=== PATIENT | female | born 1940 | race Caucasian/White ===

== ENCOUNTER 2018-08-30 07:24 | Inpatient (IN) ==
--- NOTE | 2018-08-30 12:32 | History & Physical Report ---
Date of Encounter: 08/30/18 Time of Encounter: 12:10 24 Hour HP Update - Instructions Instructions: If the History and Physical is less than 30 days old and was completed prior to A.M. admission and or procedure and has NOT been updated on calendar day of procedure please complete this update prior to performing procedure. - Update Patient reports changes in Medical Condition: No Changes in examination, assessment, or condition: No Changes in Medication: No Preop tests/diagnostics Reviewed: Yes Review of Patient reveals the following changes:: Directly admitted for sotalol initiation
[2018-08-30] MEDS ORDERED: Naloxone 0.4 MG/ML INJ IVP PRN (12:34)
[2018-08-30] MEDS ORDERED: *HR* OxyCODONE/APAP 5/325 TABLET PO PRN (12:37)
[2018-08-30] MEDS: Famotidine 20 MG TABLET PO SCH (15:35)
[2018-08-30] MEDS: Sucralfate 1 GM TABLET PO SCH (15:35)
[2018-08-30] MEDS: Gabapentin 100 MG CAPSULE PO SCH (21:52)
[2018-08-31] MEDS ORDERED: Acetaminophen 325 MG TABLET PO ONE (01:33)
--- NOTE | 2018-08-31 08:03 | Electrophysiology ProgressNote ---
Date of Encounter: 08/31/18 Time of Encounter: 08:00 Assessment and Plan (1) Atrial fibrillation Current Visit: No Status: Chronic Per Cardiology: Status post sotalol 80 mg 1 dose. Average heart rate past 12 hours on telemetry 62, remains atrial fibrillation. Current ECG shows: A. fib in the 50s with current QTC= 480ms-- however upon review appears 420's-440's per review with Dr. Trent Castellon; recommendations to continue sotalol 80 mg by mouth every 12 hours. NPO after MN for possible DCCV in am. On Xarelto 20mg PO daily, has not missed any doses the past 30 days. Qualifiers: Atrial fibrillation type: unspecified Qualified Code(s): I48.91 - Unspecified atrial fibrillation Discussion w patient/family: The assessment and plan as outlined above was discussed with the patient and/or family members who expressed understanding and agreement. All questions were answered. Thank you for involving us in the care of your patient. Please call with any questions. Subjective Principal diagnosis: Afib Interval history: Patient denies any concerns or complaints overnight. Denies any chest pain, short of breath, palpitations. Objective Vital Signs, Last 4 Hours Temp Pulse Resp BP Pulse Ox 08/31/18 05:02 97.8 F 70 16 145/81 98 08/31/18 04:40 16 96 General: Conversant, No Apparent Distress HEENT: Atraumatic, Normocephaly, Mucus Membranes Moist Neck: No JVD, Normal carotid pulses Cardiac: Normal S1 and S2, No Murmur, Other (Irregularly irregular) Lungs: Normal Breath Sounds, No Wheeze, Rales, Rhonchi Neuro: Alert and responsive, No focal deficits noted Abdomen: Soft, Non-Tender Skin: No rashes noted on visualized skin Musculoskeletal: No Chest Wall Tenderness Extremities: No Clubbing, No Cyanosis, No Edema, Normal Pulses Results - EKG Interpretation EKG results cardiology: other (Telemetry shows average heart rate 62 the past 12 hours, longest pause 2.5 secs) - VTE Reasons for not Prescribing Prophylaxis: Not indicated-Anticoagulated or INR therapeutic Consult Discharge Plan - Plan Referrals: Pro Glover MD [Primary Care Provider] -
[2018-08-31] MEDS: Furosemide 40 MG TABLET PO SCH (08:21)
[2018-08-31] MEDS: Famotidine 20 MG TABLET PO SCH ×2 (08:21→16:30)
[2018-08-31] MEDS: *HR* Rivaroxaban 10 MG TABLET PO SCH (08:21)
[2018-08-31] MEDS: Sucralfate 1 GM TABLET PO SCH ×3 (08:21→16:30)
[2018-08-31] MEDS: NIFEdipine XL (24 HR) 30 MG TAB.ER.24 PO SCH ×2 (08:21→08:40)
[2018-08-31] MEDS: Aspirin Enteric Coated 81 MG Tablet PO SCH (08:21)
[2018-08-31] MEDS: Isosorbide MONOnitrate (24 HR) 60 MG TAB.ER.24H PO SCH (08:22)
[2018-08-31] MEDS: carBAMazepine 200 MG TABLET PO SCH (08:22)
[2018-08-31] MEDS ORDERED: FELODIPINE 10 MG PO SCH (09:00)
[2018-08-31] MEDS: Gabapentin 100 MG CAPSULE PO SCH (20:12)
[2018-09-01] MEDS: Furosemide 40 MG TABLET PO SCH (07:13)
--- NOTE | 2018-09-01 09:23 | Event Note ---
Date of Encounter: 09/01/18 Time of Encounter: 08:45 - Cardiology Event Note S/p fourth dose of sotalol therapy. She remains in atrial fibrillation rate controlled. EKG this morning shows a heart rate of 62 bpm atrial fibrillation, QRS 116, QT/QTC 390/395. She is asymptomatic at this time. Denies chest pain or palpitations. Plan of a mild headache this morning. DCCV be discussed and she agrees to proceed. She denies missed doses of xarelto in the past month. Plan for discharge early evening after her fifth dose of sotalol.
[2018-09-01] MEDS: Aspirin Enteric Coated 81 MG Tablet PO SCH (09:57)
[2018-09-01] MEDS: Sucralfate 1 GM TABLET PO SCH ×3 (09:57→15:58)
[2018-09-01] MEDS: Isosorbide MONOnitrate (24 HR) 60 MG TAB.ER.24H PO SCH (09:57)
[2018-09-01] MEDS: Famotidine 20 MG TABLET PO SCH ×2 (09:57→15:57)
[2018-09-01] MEDS: carBAMazepine 200 MG TABLET PO SCH (09:57)
[2018-09-01] MEDS: *HR* Rivaroxaban 10 MG TABLET PO SCH (09:58)
[2018-09-01] MEDS ORDERED: 0.9 % Sodium Chloride 500 ML IVC ONE (10:25)
[2018-09-01] MEDS: *HR* Midazolam HCl 5 MG/5 ML VIAL IVP PRN ×2 (11:00→11:05)
[2018-09-01] MEDS: *HR* FentaNYL (PF) 100 MCG/2 ML VIAL IVP PRN ×2 (11:00→11:05)
--- NOTE | 2018-09-01 14:13 | Event Note ---
Date of Encounter: 09/01/18 Time of Encounter: 14:11 - Cardiology Event Note S/p cardioversion, HR in the low 40's after cardioversion, sinus bradycardia. No significant symptoms. Low b/p noted. IV fluid bolus given. I will discuss further recommendations with Dr. Trent Castellon. We will monitor overnight, possible d/c tomorrow.
[2018-09-01] MEDS: Gabapentin 100 MG CAPSULE PO SCH (19:51)
[2018-09-02] MEDS: Furosemide 40 MG TABLET PO SCH (09:13)
[2018-09-02] MEDS: carBAMazepine 200 MG TABLET PO SCH (09:13)
[2018-09-02] MEDS: *HR* Rivaroxaban 10 MG TABLET PO SCH (09:13)
[2018-09-02] MEDS: Isosorbide MONOnitrate (24 HR) 60 MG TAB.ER.24H PO SCH (09:13)
[2018-09-02] MEDS: Aspirin Enteric Coated 81 MG Tablet PO SCH (09:13)
[2018-09-02] MEDS: Sucralfate 1 GM TABLET PO SCH ×2 (09:13→10:39)
[2018-09-02] MEDS: Famotidine 20 MG TABLET PO SCH (09:13)
--- NOTE | 2018-09-02 09:42 | Electrocardiograph Report ---
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
--- NOTE | 2018-09-02 09:56 | Discharge Summary ---
Date of Encounter: 09/02/18 Time of Encounter: 10:00 - Discharge Diagnosis (1) Atrial fibrillation Priority: Primary Status: Chronic Comments: Directly admitted for antiarrhythmic initiation. Qualifiers: Atrial fibrillation type: unspecified Qualified Code(s): I48.91 - Unspecified atrial fibrillation - Hospital Course Hospital course: Ms. Greene is a 78 year old female directly admitted for antiarrhythmic initiation of sotalol for atrial fibrillation. Patient started on sotalol 80 mg by mouth every 12 hours and status post DC cardioversion with conversion to sinus rhythm. Patient remains sinus bradycardic in the high 40s. Discussed and reviewed with Dr. Trent Castellon, recommendations to proceed with decreasing dose of sotalol to 40 mg by mouth every 12 hours and discharge to home now and follow-up in outpatient setting. Current ECG reviewed with Dr. Castellon, SB at 52 , QTc 503ms. Patient remains on Celexa as well-- Dr. Castellon aware. Patient to be evaluated for potential need for pacemaker if remains bradycardic or develop symptoms. Currently asymptomatic and stable. Remains on Xarelto 20 mg by mouth daily for anticoagulation. Home Beta eunice being held. Prepping for discharge to home in stable condition. All questions answered. - Time Spent with Patient Total time spent providing and/or coordinating discharge services: Less than 30 minutes - Discharge Medications Prescriptions: Sotalol [Betapace] 40 mg PO Q12H #60 tablet Home Medications: Aspirin Enteric Coated [Aspirin EC] 81 mg PO DAILY 10/01/16 [History] Ergocalciferol (VITAMIN D2) [Vitamin D2] 50,000 unit PO QWEEK 10/01/16 [History] Furosemide [Lasix] 40 mg PO DAILY 10/01/16 [History] Potassium Chloride [K-Tab ER] 20 meq PO DAILY 10/01/16 [History] carBAMazepine [Tegretol] 200 mg PO DAILY 10/01/16 [History] raNITIdine HCl [Zantac] 150 mg PO BID 10/01/16 [History] Atorvastatin [Lipitor] 20 mg PO HS tablet 10/03/16 [Rx] Isosorbide MONOnitrate (24 HR) [Imdur] 60 mg PO DAILY tab.er.24h 10/03/16 [Rx] Sucralfate [Carafate] 1 gm PO TIDAC 30 Days tablet 10/03/16 [Rx] Citalopram Hydrobromide [Celexa] 40 mg PO DAILY 12/10/16 [History] Gabapentin [Neurontin] 100 mg PO HS 12/10/16 [History] Albuterol Sulfate [Albuterol Inhaler] 2 puff IH QID #1 inhaler 12/05/17 [Rx] Oxycodone HCl/Acetaminophen [Percocet 5-325 mg Tablet] 1 tab PO QID PRN [History] Rivaroxaban [Xarelto] 20 mg PO DAILY 08/30/18 [History] Sotalol [Betapace] 40 mg PO Q12H #60 tablet 09/02/18 [Rx] Allergies/Adverse Reactions: 3 Allergy/AdvReac Type Severity Reaction Status Date / Time hydrocodone [From Vicodin] Allergy Itching Verified 06/29/18 18:32 codeine AdvReac Chest Pain Verified 06/29/18 18:32 Date of admission: 08/30/18 12:34 Primary care physician: Pro Glover MD Consults: none Discharging clinician: Ji Urbano Anticipated date of discharge: 09/02/18 Physical Examination Vital Signs, Last 4 Hours Temp Pulse Resp BP Pulse Ox 09/02/18 08:02 97.7 F 50 17 104/57 93 Telemetry reviewed and shows sinus bradycardia in the upper 40s with average heart rate past 12 hours 50. ECG this morning showed sinus bradycardia at 52 with QTC of 503 ms, General: Conversant, No Apparent Distress HEENT: Atraumatic, Normocephaly, Mucus Membranes Moist Neck: No JVD, Normal carotid pulses Cardiac: Reg Rate and Rhythm, Normal S1 and S2, No Murmur Lungs: Normal Breath Sounds, No Wheeze, Rales, Rhonchi Neuro: Alert and responsive, No focal deficits noted Abdomen: Soft, Non-Tender Skin: No rashes noted on visualized skin Musculoskeletal: No Chest Wall Tenderness Extremities: No Clubbing, No Cyanosis, No Edema, Normal Pulses - Patient Status Disposition: Home, Self-Care Condition: Good Overall status at discharge: patient is progressing back to baseline - Discharge Instructions Follow Up With: Pro Glover MD [Primary Care Provider] - - Diet and Activity Diet: advance to your usual diet, low fat, low cholesterol, low salt diet - VTE Reasons for not Prescribing Prophylaxis: Not indicated-Anticoagulated or INR therapeutic
[2018-09-02 11:26] VITALS: BP 120/60
--- NOTE | 2018-09-02 11:42 | Electrocardiograph Report ---
[address] [place] [address] Test Date: 2018-08-31 Pat Name: Alison Greene Department: 109 Room: 2A42 Gender: F Shearing Shed Hand: TLS : 1940 Requested By: Ji Urbano Order Number: [id number] Reading MD: Tonia Cheng Measurements Intervals [place] Rate: 57 P: [place]: 0 QRS: -15 QRSD: 111 T: 0 QT: 488 QTc: 482 Interpretive Statements ATRIAL FIBRILLATION WITH SLOW VENTRICULAR RESPONSE INFERIOR MYOCARDIAL INFARCTION, AGE INDETERMINATE NONSPECIFIC STT ABNORMALITIES Electronically Signed On 09-02-2018 11:40:43 EDT by Tonia Cheng
--- NOTE | 2018-09-02 14:11 | Electrocardiograph Report ---
[address] [place] [address] Test Date: 2018-09-01 Pat Name: Alison Greene Department: 109 Room: 2A42 Gender: F Loom Operator: ABIMBOLA : 1940 Requested By: Ji Urbano Order Number: [id number] Reading MD: Tonia Cheng Measurements Intervals [place] Rate: 62 P: [place]: 0 QRS: -15 QRSD: 116 T: 158 QT: 390 QTc: 395 Interpretive Statements ATRIAL FIBRILLATION Nonspecific intraventricular conduction delay INFERIOR MYOCARDIAL INFARCTION, AGE INDETERMINATE MODERATE T-WAVE ABNORMALITY, CONSIDER LATERAL ISCHEMIA Electronically Signed On 09-02-2018 14:09:42 EDT by Tonia Cheng
--- NOTE | 2018-09-02 14:24 | Electrocardiograph Report ---
[address] [place] [address] Test Date: 2018-09-01 Pat Name: Alison Greene Department: 109 Room: 2A42 Gender: F Shovel Logger: : 1940 Requested By: Trent Castellon Order Number: [id number] Reading MD: Tonia Cheng Measurements Intervals [place] Rate: 61 P: [place]: 0 QRS: -22 QRSD: 116 T: -27 QT: 470 QTc: 472 Interpretive Statements ATRIAL FIBRILLATION Nonspecific intraventricular conduction delay INFERIOR MYOCARDIAL INFARCTION, AGE INDETERMINATE MODERATE T-WAVE ABNORMALITY, CONSIDER LATERAL ISCHEMIA Electronically Signed On 09-02-2018 14:23:01 EDT by Tonia Cheng
--- NOTE | 2018-09-02 14:27 | Electrocardiograph Report ---
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
--- NOTE | 2018-09-02 14:57 | Electrocardiograph Report ---
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
== END 2018-09-02 13:43 | disposition home or self-care (01) | DRG 310 ==
LOC: 2ANU
PROVIDERS: ADMIT Internal Medicine Clinical Cardiac Electrophysiology; ATTEND Internal Medicine Clinical Cardiac Electrophysiology

== ENCOUNTER 2018-09-20 17:42 | Observation (INO) ==
--- NOTE | 2018-09-20 17:52 | Emergency Department Note ---
Disposition Clinical Impression: ST segment depression Syncope Qualifiers: Syncope type: unspecified Qualified Code(s): R55 - Syncope and collapse Disposition: Admitted As Inpatient Condition: Fair Forms: ED Satisfaction Letter Time of Disposition: 20:19 Syncope HPI - General Chief Complaint: ED Syncope Stated Complaint: syncope Time Seen by Provider: 09/20/18 17:44 Nursing Notes Reviewed: Yes Vital Signs Reviewed: Yes - History of Present Illness HPI Narrative: 70-year-old female presents from urgent care via EMS. She went to urgent care concerned for possible sinus infection she has been blowing her nose quite a bit last several days. While in the waiting room, she had chest heaviness, profound tiredness sensation, warm sensation. She had syncope while sitting. She remembers coming to with multiple people around her. At this time, her only symptom is tiredness. She had no head trauma. ROS: Positive: As above Negative: Palpitations, diaphoresis, nausea, vomiting, upper extremity or jaw pain/heaviness, abdominal pain, dizziness, confusion, focal weakness, fever, chills. No dysuria no change in bowel habits. - Related Data Home Medications Medication Instructions Recorded Confirmed Aspirin Enteric Coated [Aspirin EC] 81 mg PO DAILY 10/01/16 08/30/18 Ergocalciferol (VITAMIN D2) 50,000 unit PO QWEEK 10/01/16 08/30/18 [Vitamin D2] Furosemide [Lasix] 40 mg PO DAILY 10/01/16 08/30/18 Potassium Chloride [K-Tab ER] 20 meq PO DAILY 10/01/16 08/30/18 carBAMazepine [Tegretol] 200 mg PO DAILY 10/01/16 08/30/18 raNITIdine HCl [Zantac] 150 mg PO BID 10/01/16 08/30/18 Citalopram Hydrobromide [Celexa] 40 mg PO DAILY 12/10/16 08/30/18 Gabapentin [Neurontin] 100 mg PO HS 12/10/16 08/30/18 Oxycodone HCl/Acetaminophen 1 tab PO QID PRN 08/30/18 08/30/18 [Percocet 5-325 mg Tablet] Rivaroxaban [Xarelto] 20 mg PO DAILY 08/30/18 08/30/18 Previous Rx's Medication Instructions Recorded Atorvastatin [Lipitor] 20 mg PO HS tablet 10/03/16 Isosorbide MONOnitrate (24 HR) 60 mg PO DAILY tab.er.24h 10/03/16 [Imdur] Sucralfate [Carafate] 1 gm PO TIDAC 30 Days tablet 10/03/16 Albuterol Sulfate [Albuterol 2 puff IH QID #1 inhaler 12/05/17 Inhaler] Sotalol [Betapace] 40 mg PO Q12H #60 tablet 09/02/18 Allergies Allergy/AdvReac Type Severity Reaction Status Date / Time hydrocodone [From Vicodin] Allergy Itching Verified 09/20/18 17:52 codeine AdvReac Chest Pain Verified 09/20/18 17:52 All systems ED: reviewed and negative except as stated. 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 Head: atraumatic, normocephalic Eye: normal appearance, PERRL, EOMI, no scleral icterus, no conjunctival injection ENT: mucous membranes moist, normal external ear exam Neck: normal inspection, trachea midline, full ROM Chest: normal inspection, symmetric chest rise Respiratory: Good respiratory effort. Bilateral breath sounds are clear without wheezing, crackles, or rhonchi. Cardiovascular: Regular rate and rhythm. No clicks, rubs, gallops, or murmors. Normal heart sounds. Bilateral radial posterior tibial pulses 2/4 equal. Abdomen: Bowel sounds present normoactive x-4 quadrants. Abdomen is soft, nondistended, and nontender. No guarding or rebound. Musculoskeletal: Spontaneously moving all extremities. Skin: warm, dry, intact. Neuro: Alert and oriented x4. Sensation light touch intact. Psych: Patient's affect is appropriate for situation. Course Course Narrative: Patient discharged 09/02/18. She was admitted in atrial fibrillation. Started on sotalol. DC cardioverted into sinus bradycardia. Per discharge summary, discharge medicaitons include sotalol, imdur, lasix, xarelto, aspirin. ST depression in inferior, medial, and anterior regions all of which are new. ST elevation in aVR stable from previous EKG. 18:00 Discussed the patient with Dr. Tran. Recommends we place pads. Admit to tele. Skip next sotalol and avoid antiarrhythmics. Does not meet criteria for posterior STEMI. Concern for prolonging QTC and potential to devolve into torsade. EKG #1 EKG dated 09/20/2018 at 17:53 interpreted as atrial fibrillation with rate of 59. QTC 40. Normal axis. ST depression in leads 2, 3, V3, V4, V5, V6 which are new from comparative EKG dated 09/02/2018. Precordial T-wave inversions are not new. No ST elevations. Patient is chest pain-free. EKG #2 Posterior EKG dated 09/20/2018 at 18:[address] elevations in leads V7, V8, benign. QTC 511. EKG #3 No acute changes compared to EKG #1 above. Patient is chest pain-free. Patient's story is concerning for cardiac etiology. She is been chest pain-free while the emergency department despite repeated EKG showing diffuse ST depression. Initial and repeat troponin were both unremarkable. Cardiology was consult and as above; recommendation was admission on telemetry with defibrillation pads in place, skipping her home dose of antiarrhythmics. I discussed the above with the admitting hospitalist who agrees to accept the patient for continued evaluation monitoring with cardiology consultation. Chest X-Ray 09/20/18 17:47 IMPRESSION: No acute cardiopulmonary process. D/ / Ofelia Parsons MD / Ofelia Parsons MD Interpreting Provider: Ofelia Parsons MD Head CT 09/20/18 17:47 IMPRESSION: No acute intracranial abnormality. D/ / Eduardo Coe / Eduardo Coe Interpreting Provider: Eduardo Coe Vital Signs O2 Sat by Pulse Oximetry 98 09/20/18 17:52 Temperature 97.9 F 09/20/18 18:00 Pulse Rate 58 09/20/18 18:38 Respiratory Rate 20 09/20/18 18:38 Blood Pressure 105/66 09/20/18 18:38 O2 Sat by Pulse Oximetry 94 09/20/18 18:38 Oxygen Delivery Oxygen Delivery Room Air Syncope - Lab Data Result diagrams: 09/20/18 17:57 09/20/18 17:57 Lab Results 09/20/18 09/20/18 09/20/18 Range/Units 17:57 17:57 17:57 WBC 6.7 (4.3-11.1) K/mcL RBC 4.21 (3.82-4.97) M/mcL Hgb 11.1 L (11.5-15.4) g/dL Hct 35.0 L (35.3-44.9) % MCV 83.1 (83.0-100.0) fL MCH 26.4 L (28.0-33.3) pg MCHC 31.7 (31.6-35.5) g/dL RDW 14.2 (11.5-14.5) % Plt Count 310 (140-400) K/mcL MPV 8.4 L (9.4-12.4) fL Immature Gran % 0.1 (0-4) % Seg Neutrophils % 64.1 % Lymphocytes % 24.3 % Monocytes % 9.5 % Eosinophils % 1.6 % Basophils % 0.4 % Neutrophils # 4.3 (1.6-8.9) K/mcL Lymphocytes # 1.6 (0.6-4.6) K/mcL Monocytes # 0.6 (0.0-1.3) K/mcL Eosinophils # 0.1 (0.0-0.6) K/mcL Basophils # 0.0 (0.0-0.2) K/mcL PT 21.0 H (9.4-12.1) Seconds INR 1.9 APTT 37.5 H (26.0-36.0) Seconds Sodium 134 L (136-145) mEq/L Potassium 3.8 (3.5-5.1) mEq/L Chloride 103 (98-107) mEq/L Carbon Dioxide 23 (23-29) mEq/L BUN 13 (8-23) mg/dL Creatinine 0.67 (0.60-1.20) mg/dL Est GFR ( Amer) > 60 (> 60) Est GFR (Non-Af Amer) > 60 (> 60) BUN/Creatinine Ratio 19 (6-26) Glucose 130 H (70-105) mg/dL POC Glucose (70-99) mg/dL Calculated Osmolality 280 (280-300) Calcium 9.0 (8.6-10.3) mg/dL Total Bilirubin 0.3 (0.3-1.0) mg/dL Direct Bilirubin 0.1 (0.0-0.2) mg/dL Indirect Bilirubin 0.2 (0.0-1.2) mg/dL AST 17 (13-39) Units/L ALT 14 (7-52) Units/L Alkaline Phosphatase 73 (34-104) Units/L Troponin I < 0.03 (< 0.04) ng/mL Serum Total Protein 6.6 (6.4-8.9) g/dL Albumin 3.8 (3.5-5.7) g/dL Globulin 2.8 (2.4-3.5) g/dL Albumin/Globulin Ratio 1.4 (1.1-2.2) 09/20/18 Range/Units 18:03 WBC (4.3-11.1) K/mcL RBC (3.82-4.97) M/mcL Hgb (11.5-15.4) g/dL Hct (35.3-44.9) % MCV (83.0-100.0) fL MCH (28.0-33.3) pg MCHC (31.6-35.5) g/dL RDW (11.5-14.5) % Plt Count (140-400) K/mcL MPV (9.4-12.4) fL Immature Gran % (0-4) % Seg Neutrophils % % Lymphocytes % % Monocytes % % Eosinophils % % Basophils % % Neutrophils # (1.6-8.9) K/mcL Lymphocytes # (0.6-4.6) K/mcL Monocytes # (0.0-1.3) K/mcL Eosinophils # (0.0-0.6) K/mcL Basophils # (0.0-0.2) K/mcL PT (9.4-12.1) Seconds INR APTT (26.0-36.0) Seconds Sodium (136-145) mEq/L Potassium (3.5-5.1) mEq/L Chloride (98-107) mEq/L Carbon Dioxide (23-29) mEq/L BUN (8-23) mg/dL Creatinine (0.60-1.20) mg/dL Est GFR ( Amer) (> 60) Est GFR (Non-Af Amer) (> 60) BUN/Creatinine Ratio (6-26) Glucose (70-105) mg/dL POC Glucose 147 H (70-99) mg/dL Calculated Osmolality (280-300) Calcium (8.6-10.3) mg/dL Total Bilirubin (0.3-1.0) mg/dL Direct Bilirubin (0.0-0.2) mg/dL Indirect Bilirubin (0.0-1.2) mg/dL AST (13-39) Units/L ALT (7-52) Units/L Alkaline Phosphatase (34-104) Units/L Troponin I (< 0.04) ng/mL Serum Total Protein (6.4-8.9) g/dL Albumin (3.5-5.7) g/dL Globulin (2.4-3.5) g/dL Albumin/Globulin Ratio (1.1-2.2) Attestation Statement - Attestation Attestation: I, Roque Ovalle DO, examined this patient [id number] and my medical decision-making was reviewed with Dr. Wyatt Roman, Resident Physician. I agree with the documented findings, disposition and treatment plan as described except to the extent set forth below. Please see my progress notes for details.
[2018-09-20 18:15] LABS: Basophils % 0.4 %; Eosinophils # 0.1 K/mcL (0.0-0.6); Eosinophils % 1.6 %; Hemoglobin 11.1 g/dL (11.5-15.4); Immature Granulocytes % 0.1 % (0-4); Lymphocytes # 1.6 K/mcL (0.6-4.6); Lymphocytes % 24.3 %; Mean Corpuscular HGB Conc 31.7 g/dL (31.6-35.5); Mean Corpuscular Hemoglobin 26.4 pg (28.0-33.3); Mean Corpuscular Volume 83.1 fL (83.0-100.0); Mean Platelet Volume 8.4 fL (9.4-12.4); Monocytes # 0.6 K/mcL (0.0-1.3); Monocytes % 9.5 %; Neutrophils # 4.3 K/mcL (1.6-8.9); Platelet Count 310 K/mcL (140-400); Red Blood Count 4.21 M/mcL (3.82-4.97); Red Cell Distribution Width 14.2 % (11.5-14.5); Segmented Neutrophils % 64.1 %
[2018-09-20 18:20] LABS: INR 1.9
[2018-09-20 18:23] LABS: Activated Partial Thrombo Time 37.5 Seconds (26.0-36.0)
[2018-09-20 18:34] LABS: Troponin I < 0.03 ng/mL (< 0.04)
--- NOTE | 2018-09-20 18:44 | Emergency Department Note ---
Disposition Clinical Impression: ST segment depression, Chest pain Syncope Qualifiers: Syncope type: unspecified Qualified Code(s): R55 - Syncope and collapse Disposition: Admitted As Inpatient Condition: Fair Time of Disposition: 20:15 General Adult HPI - General Chief complaint: ED Syncope Stated complaint: syncope Time Seen by Provider: 09/20/18 17:44 Source: patient, EMS Limitations: no limitations - History of Present Illness Pain Scale: 0 - Related Data Home Medications Medication Instructions Recorded Confirmed Aspirin Enteric Coated [Aspirin EC] 81 mg PO DAILY 10/01/16 09/20/18 Ergocalciferol (VITAMIN D2) 50,000 unit PO QWEEK 10/01/16 09/20/18 [Vitamin D2] Furosemide [Lasix] 40 mg PO DAILY 10/01/16 09/20/18 Potassium Chloride [K-Tab ER] 20 meq PO DAILY 10/01/16 09/20/18 carBAMazepine [Tegretol] 200 mg PO DAILY 10/01/16 09/20/18 raNITIdine HCl [Zantac] 150 mg PO BID 10/01/16 09/20/18 Citalopram Hydrobromide [Celexa] 40 mg PO DAILY 12/10/16 09/20/18 Gabapentin [Neurontin] 100 mg PO HS 12/10/16 09/20/18 Oxycodone HCl/Acetaminophen 1 tab PO QID PRN 08/30/18 09/20/18 [Percocet 5-325 mg Tablet] Rivaroxaban [Xarelto] 20 mg PO DAILY 08/30/18 09/20/18 Previous Rx's Medication Instructions Recorded Atorvastatin [Lipitor] 20 mg PO HS tablet 10/03/16 Isosorbide MONOnitrate (24 HR) 60 mg PO DAILY tab.er.24h 10/03/16 [Imdur] Sucralfate [Carafate] 1 gm PO TIDAC 30 Days tablet 10/03/16 Albuterol Sulfate [Albuterol 2 puff IH QID #1 inhaler 12/05/17 Inhaler] Sotalol [Betapace] 40 mg PO Q12H #60 tablet 09/02/18 Allergies Allergy/AdvReac Type Severity Reaction Status Date / Time hydrocodone [From Vicodin] Allergy Itching Verified 09/20/18 17:52 codeine AdvReac Chest Pain Verified 09/20/18 17:52 Past Medical History - Past Medical History Medical history: Reports: atrial fibrillation, hyperlipidemia, hypertension, myocardial infarction, other Surgical history: Reports: angioplasty/stent, appendectomy, cholecystectomy, c oronary bypass (CABG), hysterectomy Psychiatric history: Reports: depression [employer] history: Reports: non-contributory - Social History Smoking Status: Current every day smoker Smokeless Tobacco Status: No Alcohol use: Reports: none Drug use: Reports: none Physical Exam - General Limitations: no limitations General appearance: alert Course Vital Signs O2 Sat by Pulse Oximetry 98 09/20/18 17:52 Temperature 97.9 F 09/20/18 18:00 Pulse Rate 58 09/20/18 18:38 Respiratory Rate 20 09/20/18 18:38 Blood Pressure 105/66 09/20/18 18:38 O2 Sat by Pulse Oximetry 94 09/20/18 18:38 Oxygen Delivery Oxygen Delivery Room Air Medical Decision Making - Lab Data Result diagrams: 09/20/18 17:57 09/20/18 17:57 Lab Results 09/20/18 09/20/18 09/20/18 Range/Units 17:57 17:57 17:57 WBC 6.7 (4.3-11.1) K/mcL RBC 4.21 (3.82-4.97) M/mcL Hgb 11.1 L (11.5-15.4) g/dL Hct 35.0 L (35.3-44.9) % MCV 83.1 (83.0-100.0) fL MCH 26.4 L (28.0-33.3) pg MCHC 31.7 (31.6-35.5) g/dL RDW 14.2 (11.5-14.5) % Plt Count 310 (140-400) K/mcL MPV 8.4 L (9.4-12.4) fL Immature Gran % 0.1 (0-4) % Seg Neutrophils % 64.1 % Lymphocytes % 24.3 % Monocytes % 9.5 % Eosinophils % 1.6 % Basophils % 0.4 % Neutrophils # 4.3 (1.6-8.9) K/mcL Lymphocytes # 1.6 (0.6-4.6) K/mcL Monocytes # 0.6 (0.0-1.3) K/mcL Eosinophils # 0.1 (0.0-0.6) K/mcL Basophils # 0.0 (0.0-0.2) K/mcL PT 21.0 H (9.4-12.1) Seconds INR 1.9 APTT 37.5 H (26.0-36.0) Seconds Sodium 134 L (136-145) mEq/L Potassium 3.8 (3.5-5.1) mEq/L Chloride 103 (98-107) mEq/L Carbon Dioxide 23 (23-29) mEq/L BUN 13 (8-23) mg/dL Creatinine 0.67 (0.60-1.20) mg/dL Est GFR ( Amer) > 60 (> 60) Est GFR (Non-Af Amer) > 60 (> 60) BUN/Creatinine Ratio 19 (6-26) Glucose 130 H (70-105) mg/dL POC Glucose (70-99) mg/dL Calculated Osmolality 280 (280-300) Calcium 9.0 (8.6-10.3) mg/dL Magnesium 2.0 (1.6-2.6) mg/dL Total Bilirubin 0.3 (0.3-1.0) mg/dL Direct Bilirubin 0.1 (0.0-0.2) mg/dL Indirect Bilirubin 0.2 (0.0-1.2) mg/dL AST 17 (13-39) Units/L ALT 14 (7-52) Units/L Alkaline Phosphatase 73 (34-104) Units/L Troponin I < 0.03 (< 0.04) ng/mL Serum Total Protein 6.6 (6.4-8.9) g/dL Albumin 3.8 (3.5-5.7) g/dL Globulin 2.8 (2.4-3.5) g/dL Albumin/Globulin Ratio 1.4 (1.1-2.2) 09/20/18 09/20/18 Range/Units 18:03 19:41 WBC (4.3-11.1) K/mcL RBC (3.82-4.97) M/mcL Hgb (11.5-15.4) g/dL Hct (35.3-44.9) % MCV (83.0-100.0) fL MCH (28.0-33.3) pg MCHC (31.6-35.5) g/dL RDW (11.5-14.5) % Plt Count (140-400) K/mcL MPV (9.4-12.4) fL Immature Gran % (0-4) % Seg Neutrophils % % Lymphocytes % % Monocytes % % Eosinophils % % Basophils % % Neutrophils # (1.6-8.9) K/mcL Lymphocytes # (0.6-4.6) K/mcL Monocytes # (0.0-1.3) K/mcL Eosinophils # (0.0-0.6) K/mcL Basophils # (0.0-0.2) K/mcL PT (9.4-12.1) Seconds INR APTT (26.0-36.0) Seconds Sodium (136-145) mEq/L Potassium (3.5-5.1) mEq/L Chloride (98-107) mEq/L Carbon Dioxide (23-29) mEq/L BUN (8-23) mg/dL Creatinine (0.60-1.20) mg/dL Est GFR ( Amer) (> 60) Est GFR (Non-Af Amer) (> 60) BUN/Creatinine Ratio (6-26) Glucose (70-105) mg/dL POC Glucose 147 H (70-99) mg/dL Calculated Osmolality (280-300) Calcium (8.6-10.3) mg/dL Magnesium (1.6-2.6) mg/dL Total Bilirubin (0.3-1.0) mg/dL Direct Bilirubin (0.0-0.2) mg/dL Indirect Bilirubin (0.0-1.2) mg/dL AST (13-39) Units/L ALT (7-52) Units/L Alkaline Phosphatase (34-104) Units/L Troponin I < 0.03 (< 0.04) ng/mL Serum Total Protein (6.4-8.9) g/dL Albumin (3.5-5.7) g/dL Globulin (2.4-3.5) g/dL Albumin/Globulin Ratio (1.1-2.2) Attestation Statement - Attestation Attestation: I, Roque Ovalle DO, examined this patient [id number] and my medical decision-making was reviewed with Dr. Wyatt Roman, Resident Physician. I agree with the documented findings, disposition and treatment plan as described except to the extent set forth below. Please see my progress notes for details. 78-year-old female presents from the urgent care for evaluation of a syncopal event. Patient was going to the urgent care for evaluation of nasal congestion and generalized malaise. She thought that she had a viral illness. Patient den ied any falls trauma or injuries. She was just discharged from the hospital secondary to cardiac arrhythmia that required cardioversion. Patient was newly diagnosed with atrial fibrillation. Patient was started on sotalol during that admission here in the hospital. She was discharged home without any complication. She is currently on Xarelto for her blood thinner. She denies any recent falls injuries or trauma. She has been taking all her medications as they are prescribed. Today while she is waiting at the urgent care for evaluation she felt very lightheaded and had chest tightness and pressure and then passed out. Patient denies any other symptoms or complaints. Currently she is denying chest pain shortness of breath headache vision changes nausea vomiting or diarrhea. On arrival here to the emergency room she is 100% asymptomatic and speaking in full sentences. Head is atraumatic pupils are equal round reactive extracted muscles are intact. Oropharynx is patent no stridor no trismus. Lungs are clear to auscultation heart is bradycardic and regular. Abdomen is soft no pulsatile lesions noted. Patient moves all 4 of her extremities without any difficulty. She has no visible signs of neurologic deficit or symptoms. She again denies that she has any other symptoms or complaints at this point. She has no chest pain or abnormality noted during the evaluation here in the emergency room. Labs including a CBC chemistry troponin and BNP point of care glucose as well as EKG will be collected. Patient is concerning secondary to the recent starting of sotalol as well as the complaint and syncopal event here today. She may have had cardiac arrhythmia and the ca use the symptoms. Initial EKG was collected at 1753. It was reviewed by myself showing diffuse ischemia through the inferior medial and lateral leads. There is no acute signs of ST segment elevation. Posterior EKG was collected secondary to the depressions in leads V1 and V2 and V3. Posterior EKG does not show any acute signs of ST segment elevation in the 70 8V9. The nursery hand Dr. Tran who is on for interventional cardiology was contacted and he reviewed the case as well as the initial EKGs at 1607 hours. No acute signs of myocardial infarction noted the patient does not have any chest pain. No immediate activation of the catheter lab was discussed at this point. Recommendation for troponin and repeat EKG as well as symptomatic control are reviewed. Patient otherwise clinically stable. See detailed documentation the physical exam, medical intervention, medical decision-making, disposition documented in the resident physician's note. No critical care pad the patient's treatment course initially. 1845 Repeat EKG was ordered at this time. EKG analysis acute posterior VA based on the EKG. This is an initial concern continues to the posterior EKG collected almost 45 minutes ago. The patient is still asymptomatic with no medical intervention. EKG was discussed reviewed and sent to the nursery hand for review at 1905 hours. Patient does not meet acute criteria for STEMI activation secondary to lack of chest pain but we will review the EKGs at length. The in itial troponin is negative. EKG was reviewed at this time and based on our conversations does not meet STEMI criteria the patient is chest pain-free. Recommendation for repeat troponin and one hour as well as conversation the patient does have chest pain again was discussed with the nursery hand. Admission process will be completed once the labs are resulted and the patient has continuation of care established. No recommendations this time for emergent catheterization was advised from the nursery hand. 2000 Repeat troponin is negative. Patient is still asymptomatic with no chest pain. Hospitalist Dr. Fitzpatrick reviewed the case and no other recommendations or concerns. Will admit the patient for cardiac evaluation. Patient otherwise clinically stable. Admission process to be established. Patient will be observed in emergency room until admission is completed
[2018-09-20 18:45] LABS: BUN/Creatinine Ratio 19 (6-26); Blood Urea Nitrogen 13 mg/dL (8-23); Carbon Dioxide 23 mEq/L (23-29); Chloride 103 mEq/L (98-107); Glucose 130 mg/dL (70-105); Osmolality,Calculated 280 (280-300); Potassium 3.8 mEq/L (3.5-5.1); Sodium 134 mEq/L (136-145); eGFR For Non-African Americans > 60 (> 60)
[2018-09-20 19:03] LABS: Alanine Aminotransferase 14 Units/L (7-52); Albumin 3.8 g/dL (3.5-5.7); Albumin/Globulin Ratio 1.4 (1.1-2.2); Alkaline Phosphatase 73 Units/L (34-104); Aspartate Amino Transferase 17 Units/L (13-39); Bilirubin,Direct 0.1 mg/dL (0.0-0.2); Bilirubin,Indirect 0.2 mg/dL (0.0-1.2); Bilirubin,Total 0.3 mg/dL (0.3-1.0); Globulin 2.8 g/dL (2.4-3.5); Total Protein 6.6 g/dL (6.4-8.9)
[2018-09-20] MEDS ORDERED: Potassium Chloride Elixir 20 MEQ/15 ML UDC PO ONE (19:48)
--- NOTE | 2018-09-20 20:47 | Internal Med History&Physical ---
<Forrest Barrow - Last Filed: 09/20/18 23:21> Date of Encounter: 09/20/18 Time of Encounter: 20:44 Internal Medicine - H&P: HPI Chief complaint: Syncope Admitted From: Home History of present illness: Ms. Greene is a 78 year old female w/ a PMH of atrial fibrillation, HLD, HTN, [place] s/p CABG who presented to [facility] ED on 09/20/18 as a transfer from urgent care via EMS for a syncopal episode. Patient initially presented to urgent care for a possible sinus infection. She complained of a worsening cough of 5 days duration. While in waiting room, she experienced chest heaviness, fatigue, and a warm sensation. She had one syncopal episode while sitting. Patient did not fall or have any head trauma. Denied visual disturbances or memory loss after this episode. Patient was recently discharged from the hospital on 09/02; admitt ed for atrial fibrillation. She was started on sotalol per cardiologys recommendations. Was DC cardioverted into sinus bradycardia. She was sent home on sotalol, Imdur, Lasix, Xarelto, and ASA. Upon arrival, EKG performed in the ED demonstrated ST depression in inferior, medial, and anterior regions. These are new compared to previous. ST elevation in aVR. A subsequent EKG was obtained, and it demonstrated a prolonged QT of 511, compared to 40 on previous. Cardiology was contacted from ER. Dr. Tran recommended placing defibrillator pads and admitting patient to telemetry. He also recommended skipping next next sotalol dose and avoid antiarrhythmics. Patient does not meet criteria for posterior STEMI at this time. Concern for QT prolongation. CT head was unremarkable. Labs and vitals unremarkable. Troponin negative. Patient was seen and examined at bedside; reports feeling well overall. She admits to cough and increased yellow sputum production. Denies chest pain, dyspnea, diaphoresis, lightheadedness, dizziness, palpitations, visual disturbances, SOB, fever, chills, N/V. She has no further complaints at this time. Past Med Surg Social Fam HX - Past Medical History Medical history: atrial fibrillation, hyperlipidemia, hypertension, myocardial infarction, other Additional medical history: CAD Psychiatric history: depression - Past Surgical History Surgical History: angioplasty/stent, appendectomy, cholecystectomy, coronary bypass (CABG), hysterectomy Additional surgical history: cardiac stenting x2. cardioversion - Social History Smoking Status: Current every day smoker Smokeless Tobacco Status: No Alcohol use: none Drug use: none - Family History Mother Living Status: Hx Family Cardiac Disorders: Yes Hx Family Respiratory Disorders: No Hx Family Cancer: No Hx Family GI Disorders: No Hx Family Endocrine Disorder: No Hx Family Neuromuscular Disorders: No Hx Family Neurologic Disorders: No Hx Family HEENT Disorders: No Hx Family Autoimmune Disorders: No Sister Living Status: Hx Family Cardiac Disorders: Yes (heart diease) Hx Family Respiratory Disorders: No Hx Family Cancer: No Hx Family GI Disorders: No Hx Family Endocrine Disorder: Yes (DM) Hx Family Neuromuscular Disorders: No Hx Family Neurologic Disorders: No Hx Family HEENT Disorders: No Hx Family Autoimmune Disorders: No Daughter Living Status: Hx Family Cardiac Disorders: No Hx Family Respiratory Disorders: No Hx Family Cancer: Yes (breast cancer) Hx Family GI Disorders: No Hx Family Endocrine Disorder: No Hx Family Neuromuscular Disorders: No Hx Family Neurologic Disorders: No Hx Family HEENT Disorders: No Hx Family Autoimmune Disorders: No Son Living Status: Still Living Hx Family Cardiac Disorders: Yes (HTN, [place]) Hx Family Respiratory Disorders: No Hx Family Cancer: No Hx Family GI Disorders: No Hx Family Endocrine Disorder: No Hx Family Neuromuscular Disorders: No Hx Family Neurologic Disorders: No Hx Family HEENT Disorders: No Hx Family Autoimmune Disorders: No Internal Medicine - H&P: Meds Aspirin Enteric Coated [Aspirin EC] 81 mg PO DAILY 10/01/16 [History] Ergocalciferol (VITAMIN D2) [Vitamin D2] 50,000 unit PO QWEEK 10/01/16 [History] Furosemide [Lasix] 40 mg PO DAILY 10/01/16 [History] Potassium Chloride [K-Tab ER] 20 meq PO DAILY 10/01/16 [History] carBAMazepine [Tegretol] 200 mg PO DAILY 10/01/16 [History] raNITIdine HCl [Zantac] 150 mg PO BID 10/01/16 [History] Atorvastatin [Lipitor] 20 mg PO HS tablet 10/03/16 [Rx] Isosorbide MONOnitrate (24 HR) [Imdur] 60 mg PO DAILY tab.er.24h 10/03/16 [Rx] Sucralfate [Carafate] 1 gm PO TIDAC 30 Days tablet 10/03/16 [Rx] Citalopram Hydrobromide [Celexa] 40 mg PO DAILY 12/10/16 [History] Gabapentin [Neurontin] 100 mg PO HS 12/10/16 [History] Albuterol Sulfate [Albuterol Inhaler] 2 puff IH QID #1 inhaler 12/05/17 [Rx] Oxycodone HCl/Acetaminophen [Percocet 5-325 mg Tablet] 1 tab PO QID PRN 08/30/18 [History] Rivaroxaban [Xarelto] 20 mg PO DAILY 08/30/18 [History] Sotalol [Betapace] 40 mg PO Q12H #60 tablet 09/02/18 [Rx] Allergy/AdvReac Type Severity Reaction Status Date / Time hydrocodone [From Vicodin] Allergy Itching Verified 09/20/18 17:52 codeine AdvReac Chest Pain Verified 09/20/18 17:52 All Systems PM: A 10-system review of systems was performed and is negative for pertinent findings except as documented above in the HPI. - Constitutional Constitutional: as per HPI, no chills, no fatigue, no fever(s), no lethargy, no malaise, no weakness - EENT Eyes: as per HPI, no change in vision Ears: as per HPI, no tinnitus Nose, mouth and throat: as per HPI, no nasal congestion, no nasal discharge, no post-nasal drip, no sore throat - Cardiovascular Cardiovascular ROS IM: as per HPI, irregular heart rhythm, no chest pain, no diaphoresis, no dyspnea, no dyspnea on exertion, no lightheadedness, no palpitations - Respiratory Respiratory: as per HPI, cough, no dyspnea, no wheezing, no pain on inspiration (Productive cough with yellow sputum), no chest congestion - Gastrointestinal Gastrointestinal: as per HPI, no abdominal pain - Genitourinary Genitourinary: as per HPI Menstruation: as per HPI - Musculoskeletal Musculoskeletal ROS IM: as per HPI - Integumentary Integumentary IM: as per HPI - Neurological Neurological ROS: as per HPI, no abnormal speech, no dizziness, no headache(s), no weakness, no other visual disturbances - Psychiatric Psychiatric: as per HPI - Endocrine Endocrine IM: as per HPI, no fatigue - Hematologic/Lymphatic Hematologic/Lymphatic: as per HPI - Constitutional Vitals: Temp Pulse Resp BP Pulse Ox 97.9 F 58 16 132/68 94 09/20/18 18:00 09/20/18 18:38 09/20/18 20:43 09/20/18 20:43 09/20/18 18:38 General appearance: Present: A&O X 3 Exam: See above - Head Head exam: Present: atraumatic, normocephalic - Eye Eye exam: Present: PERRL, conjuntiva pink, sclera anicteric Pupils: Present: PERRL - Neck Neck exam general surgery: Present: supple, trachea midline. Absent: lymphad enopathy - Respiratory Respiratory exam: Present: decreased breath sounds, prolonged expiratory phase. Absent: accessory muscle use, rales, rhonchi, wheezes - Cardiovascular Cardiovascular exam: Present: irregular rhythm, +S1, +S2. Absent: diastolic murmur, gallop, rubs, systolic murmur - GI/Abdominal GI/Abdominal exam: Present: normal bowel sounds, soft, no peritoneal signs. A bsent: distended, tenderness - Extremities Exam Extremities exam: Present: warm, radial pulses palpable and symmetrical. Absent: calf tenderness, cyanotic, pedal edema - Neurological Exam Neurological exam: Present: CN II-XII intact, oriented X3, no focal deficits. Absent: pronater drift, facial droop, speech deficit - Skin Skin exam: Present: dry, intact Internal Med - H&P Results - Labs CBC & Chem 7: 09/20/18 17:57 09/20/18 17:57 Labs: Short CBC 09/20/18 Range/Units 17:57 WBC 6.7 (4.3-11.1) K/mcL Hgb 11.1 L (11.5-15.4) g/dL Hct 35.0 L (35.3-44.9) % Plt Count 310 (140-400) K/mcL Neutrophils # 4.3 (1.6-8.9) K/mcL BMP 09/20/18 17:57 Sodium 134 L Potassium 3.8 Chloride 103 Carbon Dioxide 23 BUN 13 Creatinine 0.67 Glucose 130 H Calcium 9.0 Cardiac Enzymes 09/20/18 09/20/18 Range/Units 17:57 19:41 Troponin I < 0.03 < 0.03 (< 0.04) ng/mL Liver Function 09/20/18 Range/Units 17:57 Total Bilirubin 0.3 (0.3-1.0) mg/dL Direct Bilirubin 0.1 (0.0-0.2) mg/dL AST 17 (13-39) Units/L ALT 14 (7-52) Units/L Alkaline Phosphatase 73 (34-104) Units/L Albumin 3.8 (3.5-5.7) g/dL - Impressions ITS Impressions Chest X-Ray 09/20/18 17:47 IMPRESSION: No acute cardiopulmonary process. D/ / Ofelia Parsons MD / Ofelia Parsons MD Interpreting Provider: Ofelia Parsons MD Head CT 09/20/18 17:47 IMPRESSION: No acute intracranial abnormality. D/ / Eduardo Coe / Eduardo Coe Interpreting Provider: Eduardo Coe - Assessment and plan (1) QT prolongation Current Visit: Yes Status: Acute Assessment and plan: Unknown etiology at this time; possibly secondary to sotalol - Presented after syncopal episode at urgent care - EKG performed in the ER demonstrated: QTC 40, rate 59, ST depressions in leads 2, 3, V3 through V6; New from previous on 09/02. - Repeat EKG demonstrated QTC 511 - Patient denied chest pain/lightheadedness in the ED - Troponins negative - Patient was given a one-time dose of potassium in the ED - Cardiology recommends: admission on telemetry, defibrillation pads in place, hold home sotalol Plan: - Will hold sotalol andImdur per cardiology recommendations - Continuous telemetry - Repeat troponin and AM labs, including CBC, BMP, and Mg (2) Syncope Current Visit: Yes Status: Acute Assessment and plan: Unknown etiology at this time - Patient reports having chest pain and lightheadedness for approximately 15 minutes before passing out - Patient was sitting in chair; did not fall or hit her head - CT scan of the head showed no acute intracranial abnormalities -TTE 07/22/18: LVEF 55%, moderate diastolic dysfunction, severely calcified aortic valve leaflets, moderate to severe aortic stenosis. Plan: - Continuous telemetry - Seizure precautions - Accuchecks - Cardiology has been consulted; plan as above Qualifiers: Qualified Code(s): R55 - Syncope and collapse (3) Atrial fibrillation Current Visit: No Status: Chronic Assessment and plan: Patient has a known history of atrial fibrillation - Currently on continuous telemetry - Rhythm is currently irregular Plan: - Continuous telemetry - Continue Xarelto Qualifiers: Atrial fibrillation type: unspecified Qualified Code(s): I48.91 - Unspecified atrial fibrillation (4) Upper respiratory infection Current Visit: Yes Status: Acute Assessment and plan: Patient reports cough with sputum production for approximately 5 days - Patient reports that she has had a chronic cough for the last year, but reports symptoms have - Patient is having yellow sputum production - Denies fever/chills - CXR showed no acute process - No white count; will hold off on antibiotics for the time being - N-Acetylcysteine and sputum CX Qualifiers: Qualified Code(s): J06.9 - Acute upper respiratory infection, unspecified (5) CAD (coronary artery disease) Current Visit: No Status: Chronic Assessment and plan: Known history of CAD - Patient is s/p CABG - Will continue home meds except for imdur and sotalol Qualifiers: Coronary Disease-Associated Artery/Lesion type: [place] artery [place] vs. transplanted heart: [place] heart Associated angina: without angina Qualified Code(s): I25.10 - Atherosclerotic heart disease of [place] coronary artery without angina pectoris (6) Aortic stenosis Current Visit: No Status: Chronic Assessment and plan: TTE 07/22/18: LVEF 55%, moderate diastolic dysfunction, severely calcified aortic valve leaflets, moderate to severe aortic stenosis Qualifiers: Cardiac valve disease etiology: etiology unspecified Qualified Code(s): I35.0 - Nonrheumatic aortic (valve) stenosis - Time Spent With Patient Total time spent is greater than 50% in coordination of care (as documented) at patient's floor/unit and/or counseling patient: 25 - 35 minutes <Abilio Fitzpatrick - Last Filed: 09/21/18 01:10> Date of Encounter: 09/21/18 Time of Encounter: 00:20 - Cardiovascular Cardiovascular ROS IM: chest pain, irregular heart rhythm, syncope - Neurological Neurological ROS: no dizziness, no frequent falls, no headache(s), no weakness - Constitutional Vitals: Temp Pulse Resp BP Pulse Ox 98.5 F 63 16 112/70 99 09/21/18 00:15 09/21/18 00:15 09/21/18 00:15 09/21/18 00:15 09/21/18 00:15 General appearance: Present: cooperative, A&O X 3, pleasant, no acute distress - Head Head exam: Present: atraumatic, normal inspection - Eye Eye exam: Present: EOMI, PERRL. Absent: scleral icterus Pupils: Present: normal accommodation - ENT ENT exam: Present: mucous membranes dry, normal exam, normal oropharynx - Neck Neck exam general surgery: Present: full ROM, supple - Expanded Neck Exam Neck exam: Absent: carotid bruit - Respiratory Respiratory exam: Present: prolonged expiratory phase, rhonchi. Absent: chest wall tenderness, respiratory distress, wheezes - Cardiovascular Cardiovascular exam: Present: irregular rhythm, +S1, +S2 - GI/Abdominal GI/Abdominal exam: Present: soft. Absent: hepatomegaly, splenomegaly, tenderness - Back Exam Back exam: Absent: CVA tenderness (L), CVA tenderness (R) - Neurological Exam Neurological exam: Present: alert, CN II-XII intact, oriented X3, no focal deficits - Psychiatric Psychiatric exam: Present: normal affect, normal mood - Skin Skin exam: Present: dry, intact, warm Internal Med - H&P Results - Labs CBC & Chem 7: 09/20/18 17:57 09/20/18 17:57 Labs: Short CBC 09/20/18 Range/Units 17:57 WBC 6.7 (4.3-11.1) K/mcL Hgb 11.1 L (11.5-15.4) g/dL Hct 35.0 L (35.3-44.9) % Plt Count 310 (140-400) K/mcL Neutrophils # 4.3 (1.6-8.9) K/mcL BMP 09/20/18 17:57 Sodium 134 L Potassium 3.8 Chloride 103 Carbon Dioxide 23 BUN 13 Creatinine 0.67 Glucose 130 H Calcium 9.0 Cardiac Enzymes 09/20/18 09/20/18 Range/Units 17:57 19:41 Troponin I < 0.03 < 0.03 (< 0.04) ng/mL Liver Function 09/20/18 Range/Units 17:57 Total Bilirubin 0.3 (0.3-1.0) mg/dL Direct Bilirubin 0.1 (0.0-0.2) mg/dL AST 17 (13-39) Units/L ALT 14 (7-52) Units/L Alkaline Phosphatase 73 (34-104) Units/L Albumin 3.8 (3.5-5.7) g/dL Urine 09/20/18 Range/Units 22:30 Urine Color Yellow (Yellow) Urine Clarity Clear (Clear) Urine pH 6.5 (5.0-8.0) pH Units Ur Specific [place] 1.014 (1.010-1.025) Urine Protein Negative (Neg-Trace) mg/dL Urine Glucose (UA) Normal (Normal) mg/dL - EKG Data -: EKG Interpreted by Myself - EKG Data Prior EKG available for review: yes EKG comments: 09/21/18 01:[address]-T depression as described above - Impressions ITS Impressions Chest X-Ray 09/20/18 17:47 IMPRESSION: No acute cardiopulmonary process. D/ / Ofelia Parsons MD / Ofelia Parsons MD Interpreting Provider: Ofelia Parsons MD Head CT 09/20/18 17:47 IMPRESSION: No acute intracranial abnormality. D/ / Eduardo Coe / Eduardo Coe Interpreting Provider: Eduardo Coe - Time Spent With Patient Total time spent is greater than 50% in coordination of care (as documented) at patient's floor/unit and/or counseling patient: - Attending Attestation I discussed the patient [place], past medical history, review of systems, lab data, imaging findings, and exam findings with Dr. Barrow. I then saw and examined patient independently. Patient is resting comfortably and has no complaints at this time. She has had some vague cough and sinus congestion. Regarding the syncopal spell, she does not remember passing out but remembers waking up and being attended to by staff at the urgent care. She and her granddaughter both state she has been dealing with atrial fibrillation for over the last year and have had discussions with cardiology about possible need for pacemaker. She has had periods of slow heart rate causing lightheadedness and dizzy spells. She also has had rapid heart rate requiring treatment with medications and cardioversion as above. Cardiology has been consulted from the ER and discussed the case with them. We are withholding her antiarrhythmic right now and her Imdur. We will monitor her overnight and trend troponins as well. We will await chronology consultation. I discussed with patient and her granddaughter that she will likely benefit from pacemaker in the near future. However, this discussion as to be had with cardiology and decision to be made with cardiology rather than me. They both voiced understanding and agree to plan of care. Other than my comments above and documented exam findings, I agree with Dr. Barrow's assessment and plan.
[2018-09-20] MEDS ORDERED: Naloxone 0.4 MG/ML INJ IVP PRN (21:31)
[2018-09-20] MEDS: 0.9 % Sodium Chloride 1,000 ML IVC SCH (22:22)
[2018-09-20 22:50] LABS: Bilirubin,Urine Negative (Negative); Blood,Urine Negative (Negative); Clarity,Urine Clear (Clear); Color,Urine Yellow (Yellow); Glucose,Urine (UA) Normal (Normal); Ketones,Urine Negative (Negative); Leukocyte Esterase,Urine Negative (Negative); Nitrite,Urine Negative (Negative); PH,Urine 6.5 pH Units (5.0-8.0); Protein,Urine Negative (Neg-Trace); Specific Gravity,Urine 1.014 (1.010-1.025); Urobilinogen,Urine Normal (Normal)
[2018-09-21] MEDS ORDERED: Acetylcysteine 10% 2 ML INHSOL IH SCH
[2018-09-21] MEDS: *HR* OxyCODONE/APAP 5/325 TABLET PO PRN ×2 (01:09→19:51)
[2018-09-21] MEDS: Acetylcysteine 10% 2 ML INHSOL IH SCH ×4 (03:45→22:41)
[2018-09-21] MEDS: Albuterol 2.5 MG/3 ML NEBULIZER IH SCH ×4 (03:46→22:41)
[2018-09-21 05:15] LABS: Basophils % 0.5 %; Eosinophils # 0.1 K/mcL (0.0-0.6); Eosinophils % 1.6 %; Hematocrit 33.9 % (35.3-44.9); Hemoglobin 10.9 g/dL (11.5-15.4); Immature Granulocytes % 0.2 % (0-4); Lymphocytes # 1.7 K/mcL (0.6-4.6); Lymphocytes % 27.2 %; Mean Corpuscular HGB Conc 32.2 g/dL (31.6-35.5); Mean Corpuscular Hemoglobin 26.8 pg (28.0-33.3); Mean Corpuscular Volume 83.3 fL (83.0-100.0); Mean Platelet Volume 9.2 fL (9.4-12.4); Monocytes # 0.6 K/mcL (0.0-1.3); Monocytes % 9.1 %; Neutrophils # 3.9 K/mcL (1.6-8.9); Platelet Count 292 K/mcL (140-400); Red Blood Count 4.07 M/mcL (3.82-4.97); Red Cell Distribution Width 14.3 % (11.5-14.5); Segmented Neutrophils % 61.4 %
[2018-09-21 05:22] LABS: INR 1.3; Prothrombin Time 14.2 Seconds (9.4-12.1)
[2018-09-21 05:34] LABS: BUN/Creatinine Ratio 19 (6-26); Blood Urea Nitrogen 11 mg/dL (8-23); Calcium 9.1 mg/dL (8.6-10.3); Carbon Dioxide 26 mEq/L (23-29); Chloride 102 mEq/L (98-107); Chol/HDL Ratio 2.7 (0-4.9); Cholesterol 127 mg/dL (< 200); Glucose 93 mg/dL (70-105); HDL Cholesterol 47 mg/dL (40-59); LDL Cholesterol,Calculated 64 mg/dL (0-99); Magnesium 1.8 mg/dL (1.6-2.6); Osmolality,Calculated 281 (280-300); Potassium 3.5 mEq/L (3.5-5.1); Sodium 136 mEq/L (136-145); Triglycerides 79 mg/dL (< 150); eGFR For Non-African Americans > 60 (> 60)
[2018-09-21] MEDS ORDERED: Famotidine 20 MG TABLET PO SCH (07:30)
[2018-09-21] MEDS: Aspirin Enteric Coated 81 MG Tablet PO SCH (10:15)
[2018-09-21] MEDS: Sucralfate 1 GM TABLET PO SCH ×3 (10:15→17:15)
[2018-09-21] MEDS: *HR* Rivaroxaban 10 MG TABLET PO SCH (10:16)
[2018-09-21] MEDS: carBAMazepine 200 MG TABLET PO SCH (10:16)
[2018-09-21] MEDS: Furosemide 40 MG TABLET PO SCH (10:16)
[2018-09-21] MEDS: 0.9 % Sodium Chloride 1,000 ML IVC SCH (10:41)
--- NOTE | 2018-09-21 11:22 | Internal Med Progress Note ---
Hospitalist Progress Note - Encounter Date of Encounter: 09/21/18 Time of Encounter: 10:06 - Subjective Interval History: Patient seen and evaluated at bedside, she reports that she still feels lightheaded, and slightly dizzy. Eyes palpitation, shortness of breath or chest pain. Reports nausea, denies vomiting, abdominal pain. Denies shortness of breath, but reports productive cough for yellow sputum. No fever, chills. - Exam Vitals: Temp Pulse Resp BP Pulse Ox 98.1 F 75 16 111/72 95 09/21/18 06:35 09/21/18 06:35 09/21/18 06:35 09/21/18 06:35 09/21/18 06:35 Exam: General: Alert and oriented 4. In mild distress due to nausea, lightheadedness. Skin: Normal color, no rash, no lesions. HEENT: EOM, pupils equal, round and reactive. Cardiovascular: Irregularly, irregular, Normal S1 & S2, no rubs, murmurs or gallops. JVD about 6cm. Lungs: Clear to auscultation bilaterally., no wheezes or crackles. Abdomen: Obese, Soft, non-tender, no rigidity. Extremities:No deformity, no edema or tenderness, no joint swelling or clubbing. Neurological: Normal cognition and motor skills. Rest of the physical exam is non contributory - Assessment and Plan (1) Syncope Current Visit: Yes Status: Resolved Assessment and Plan: Most likely secondary to a cardiac arrhythmia? CT of the head done: No acute abnormality. Continue telemetry monitoring. (2) QT prolongation Current Visit: Yes Status: Acute Assessment and Plan: Antiplatelet medication has been held as per cardiology recommendation. Cardiology has been consulted, will follow recommendations. (3) Upper respiratory infection Current Visit: Yes Status: Acute Assessment and Plan: Patient continues to have productive cough of yellow sputum. No fever or chills. We will treat symptomatically. No need for antibiotics at this time. Chest x-ray shown no pulm infiltrates. (4) Atrial fibrillation Current Visit: No Status: Chronic Assessment and Plan: Rate controlled. Patient on sotalol. Continue to hold medication as per cardiology recommendations On xarelto due to High [id number] score. (5) CAD (coronary artery disease) Current Visit: No Status: Chronic Assessment and Plan: Continue aspirin and statin. (6) Diastolic CHF Current Visit: No Status: Chronic Assessment and Plan: Not an acute exacerbation. Continue furosemide 40 mg by mouth daily Discontinue IV fluid Strict intake and outputs. (7) Depression Current Visit: Yes Status: Chronic Assessment and Plan: Continue citalopram 200 mg by mouth daily DVT Prophylaxis: Patient on an oral anticoagulant due to Atrial fibrillation. - Summary of Assessment and Plan Summary of Assessment and Plan: Patient to remain in the hospital with telemetry monitoring, continues to feel lightheaded. - Time Spent with Patient Total time spent is greater than 50% in coordination of care (as documented) at patient's floor/unit and/or counseling patient: 25 - 35 minutes Plan of Care Discussed with: patient Internal Medicine: Result - Labs CBC & Chem 7: 09/21/18 04:01 09/21/18 04:01 Labs: Short CBC 09/20/18 09/21/18 Range/Units 17:57 04:01 WBC 6.7 6.3 (4.3-11.1) K/mcL Hgb 11.1 L 10.9 L (11.5-15.4) g/dL Hct 35.0 L 33.9 L (35.3-44.9) % Plt Count 310 292 (140-400) K/mcL Neutrophils # 4.3 3.9 (1.6-8.9) K/mcL BMP 09/20/18 09/21/18 17:57 04:01 Sodium 134 L 136 Potassium 3.8 3.5 Chloride 103 102 Carbon Dioxide 23 26 BUN 13 11 Creatinine 0.67 0.59 L Glucose 130 H 93 Calcium 9.0 9.1 Cardiac Enzymes 09/20/18 09/20/18 Range/Units 17:57 19:41 Troponin I < 0.03 < 0.03 (< 0.04) ng/mL Liver Function 09/20/18 Range/Units 17:57 Total Bilirubin 0.3 (0.3-1.0) mg/dL Direct Bilirubin 0.1 (0.0-0.2) mg/dL AST 17 (13-39) Units/L ALT 14 (7-52) Units/L Alkaline Phosphatase 73 (34-104) Units/L Albumin 3.8 (3.5-5.7) g/dL Urine 09/20/18 Range/Units 22:30 Urine Color Yellow (Yellow) Urine Clarity Clear (Clear) Urine pH 6.5 (5.0-8.0) pH Units Ur Specific [place] 1.014 (1.010-1.025) Urine Protein Negative (Neg-Trace) mg/dL Urine Glucose (UA) Normal (Normal) mg/dL - ABG Interpretation ABG results: PT/INR, D-dimer PT 14.2 Seconds (9.4-12.1) H 09/21/18 04:01 - Impressions Impressions Chest X-Ray 09/20/18 17:47 IMPRESSION: No acute cardiopulmonary process. D/ / Ofelia Parsons MD / Ofelia Parsons MD Interpreting Provider: Ofelia Parsons MD Head CT 09/20/18 17:47 IMPRESSION: No acute intracranial abnormality. D/ / Eduardo Coe / Eduardo Coe Interpreting Provider: Eduardo Coe Consult Discharge Plan - Plan Referrals: Pro Glover MD [Primary Care Provider] - (1) Syncope Qualifiers: Syncope type: unspecified Qualified Code(s): R55 - Syncope and collapse (3) Upper respiratory infection Qualifiers: URI type: unspecified URI Qualified Code(s): J06.9 - Acute upper respiratory infection, unspecified (4) Atrial fibrillation Qualifiers: Atrial fibrillation type: unspecified Qualified Code(s): I48.91 - Unspecified atrial fibrillation (5) CAD (coronary artery disease) Qualifiers: Coronary Disease-Associated Artery/Lesion type: [place] artery [place] vs. transplanted heart: [place] heart Associated angina: without angina Qualified Code(s): I25.10 - Atherosclerotic heart disease of [place] coronary artery without angina pectoris (6) Diastolic CHF Qualifiers: Qualified Code(s): I50.32 - Chronic diastolic (congestive) heart failure (7) Depression Qualifiers: Depression Type: unspecified Qualified Code(s): F32.9 - Major depressive disorder, single episode, unspecified
--- NOTE | 2018-09-21 11:26 | Electrophysiology Consult Note ---
Addendum entered and electronically signed by Trent Castellon MD 09/21/18 14:33: I have personally performed a face to face evaluation on this patient. I have reviewed and agree with the care plan. History and Exam by me shows: Syncope in urgent care of uncertain etiology. Noted to be in AF again of uncertain duration. At this point would discontinue sotalol and continue rate control and anticoagulation. Original Note: Date of Encounter: 09/21/18 Time of Encounter: 10:42 Assessment and Plan (1) Prolonged QT interval Current Visit: Yes Status: Acute Mrs. Greene presents with witnessed loss of conciousness while sitting. She did not fall. No vitals or documentation from urgent care seen. EKG taken in the ED shows sinus bradycardia, HR 53 bpm, QT/QTc 492/480. Repeat EKG -atrial fibrillation, QTC 511 ms. Noted that EKG prior to discharge was 503 ms. Reviewed EKG with Dr. Trent Castellon, QTC not significant with QRS at 120. No significant change from baseline. Likely not related to syncopal event. We will stop sotalol due to recurrent afib. (2) Paroxysmal atrial fibrillation Current Visit: Yes Status: Chronic Known PAF, started on Sotalol 40mg BID earlier this month and underwent DCCV to SR. Presents back in atrial fibrillation. As above, Sotalol stopped due to QTc >500ms. Reports 3 missed doses in the past month due to hives and itching. She is now taking without problem. Failed sotalol therapy. Hold sotalol and monitor HR. Recommend rate control and anticoagulation at this point. Continue xarelto. Can consider amiodarone in the future if needed. We will monitor telemetry overnight. Avg HR 72 bpm. If HR increases can add low dose BB. (3) Bradycardia Current Visit: No Status: Acute Noted HR in the 50's at times. AVg HR 72 bpm. Min HR 40 bpm at 0400 am. No significant pauses. No significant findings to account for syncopal event. Continue to monitor. Sotalol therapy held. Discussion w patient/family: The assessment and plan as outlined above was discussed with the patient and/or family members who expressed understanding and agreement. All questions were answered. Thank you for involving us in the care of your patient. Please call with any questions. History of Present Illness Consult date: 09/21/18 Requesting physician: Tvaon Tran Consult reason: prolonged QT syncope Chief complaint: Extreme fatigue, witness syncopal event. History of present illness: Ms. Greene is a 78 year old female with past medical history significant for atrial fibrillation s/p recent sotalol therapy initiation and cardioversion to sinus bradycardia on 09/01/18. She also has past medical history of 3V CABG in 2004, moderate to severe , HTN, HLD. She presents from urgent care after she was witness to loss of consciousness while sitting in a chair. She c/o extreme fatigue and garble speech prior to the event. Her blood sugar was checked and found to be normal. EKG showed sinus bradycardia HR 53 bpm, atrial fibrillation with QT/QTc 492/480. She was sent to [facility] for further work-up. EP consulted for prolonged QT. Cardiology following patient and evaluating her aortic stenosis as possible cause of symptoms. Prior cardiac testing: TTE 06/2018: Normal LV chamber size, wall thickness. LVEF 55%. Moderate diastolic function. Mildly dilated right ventricle with mild dysfunction. Mildly dilated left and right atrium. Severely calcified aortic valve leaflets. Moderate-severe aortic stenosis. (Peak and mean gradients are 50 30 mmHg, respectively. L5=660 cm/s, V1=80 cm/s, LVOT diameter 2cm, GE on continuity 0.7cm^2) Mild aortic regurgitation. Mild mitral regurgitation and mild tricuspid regurgitation. Low CVP, no pulmonary hypertension. [facility]- 2015- 01/30 patent bypass grafts, moderate . Past Med Surg Social Fam HX - Past Medical History Medical history: atrial fibrillation, hyperlipidemia, hypertension, myocardial infarction, other Additional medical history: CAD Psychiatric history: depression - Past Surgical History Surgical History: angioplasty/stent, appendectomy, cholecystectomy, coronary bypass (CABG), hysterectomy Additional surgical history: cardiac stenting x2. cardioversion - Social History Smoking Status: Current every day smoker Packs per day: 0.25 Smokeless Tobacco Status: No Alcohol use: none Drug use: none - Family History Mother Living Status: Hx Family Cardiac Disorders: Yes Hx Family Respiratory Disorders: No Hx Family Cancer: No Hx Family GI Disorders: No Hx Family Endocrine Disorder: No Hx Family Neuromuscular Disorders: No Hx Family Neurologic Disorders: No Hx Family HEENT Disorders: No Hx Family Autoimmune Disorders: No Sister Living Status: Hx Family Cardiac Disorders: Yes (heart diease) Hx Family Respiratory Disorders: No Hx Family Cancer: No Hx Family GI Disorders: No Hx Family Endocrine Disorder: Yes (DM) Hx Family Neuromuscular Disorders: No Hx Family Neurologic Disorders: No Hx Family HEENT Disorders: No Hx Family Autoimmune Disorders: No Daughter Living Status: Hx Family Cardiac Disorders: No Hx Family Respiratory Disorders: No Hx Family Cancer: Yes (breast cancer) Hx Family GI Disorders: No Hx Family Endocrine Disorder: No Hx Family Neuromuscular Disorders: No Hx Family Neurologic Disorders: No Hx Family HEENT Disorders: No Hx Family Autoimmune Disorders: No Son Living Status: Still Living Hx Family Cardiac Disorders: Yes (HTN, HI) Hx Family Respiratory Disorders: No Hx Family Cancer: No Hx Family GI Disorders: No Hx Family Endocrine Disorder: No Hx Family Neuromuscular Disorders: No Hx Family Neurologic Disorders: No Hx Family HEENT Disorders: No Hx Family Autoimmune Disorders: No Medications and Allergies Aspirin Enteric Coated [Aspirin EC] 81 mg PO DAILY 10/01/16 [History] Ergocalciferol (VITAMIN D2) [Vitamin D2] 50,000 unit PO QWEEK 10/01/16 [History] Furosemide [Lasix] 40 mg PO DAILY 10/01/16 [History] Potassium Chloride [K-Tab ER] 20 meq PO DAILY 10/01/16 [History] carBAMazepine [Tegretol] 200 mg PO DAILY 10/01/16 [History] raNITIdine HCl [Zantac] 150 mg PO BID 10/01/16 [History] Atorvastatin [Lipitor] 20 mg PO HS tablet 10/03/16 [Rx] Isosorbide MONOnitrate (24 HR) [Imdur] 60 mg PO DAILY tab.er.24h 10/03/16 [Rx] Sucralfate [Carafate] 1 gm PO TIDAC 30 Days tablet 10/03/16 [Rx] Citalopram Hydrobromide [Celexa] 40 mg PO DAILY 12/10/16 [History] Gabapentin [Neurontin] 100 mg PO HS 12/10/16 [History] Albuterol Sulfate [Albuterol Inhaler] 2 puff IH QID #1 inhaler 12/05/17 [Rx] Oxycodone HCl/Acetaminophen [Percocet 5-325 mg Tablet] 1 tab PO QID PRN 08/30/18 [History] Rivaroxaban [Xarelto] 20 mg PO DAILY 08/30/18 [History] Sotalol [Betapace] 40 mg PO Q12H #60 tablet 09/02/18 [Rx] Allergy/AdvReac Type Severity Reaction Status Date / Time hydrocodone [From Vicodin] Allergy Itching Verified 09/20/18 17:52 codeine AdvReac Chest Pain Verified 09/20/18 17:52 All Systems Review: The remainder of the systems were reviewed and are negative Physical Examination Vital Signs Temp Pulse Resp BP Pulse Ox 09/21/18 10:44 97.9 F 92 16 100 09/21/18 06:35 98.1 F 75 16 111/72 95 09/21/18 03:46 17 99 09/21/18 03:37 97.7 F 54 16 109/71 97 09/21/18 00:15 98.5 F 63 16 112/70 99 09/20/18 21:28 98.2 F 81 16 110/70 90 09/20/18 20:43 16 132/68 09/20/18 18:38 58 20 105/66 94 09/20/18 18:30 58 20 110/72 95 09/20/18 18:15 61 97 107/85 09/20/18 18:00 97.9 F 60 20 97/68 97 09/20/18 17:52 98 Intake and Output 09/20/18 09/21/18 09/21/18 23:59 07:59 15:59 Intake Total 1000 / 1000 Output Total 200 / 200 200 / 200 Balance -200 / -200 800 / 800 Intake: IV Fluids 1000 / 1000 0.9 % Sodium Chloride 1,000 ML 1000 / 1000 @ 100 mls/hr IVC .Q10H COUNT INCLUDES THE [facility] Rx#: [id number] Oral 0 / 0 Output: Urine 200 / 200 200 / 200 Other: Meal npo Percent of Meal Consumed 0% Weight 73 kg 73.6 kg Blood Glucose* 147 Patient Weight 09/21/18 23:59 Weight 73.6 kg General: Conversant, No Apparent Distress HEENT: Atraumatic, Normocephaly, Mucus Membranes Moist Neck: No JVD, Normal carotid pulses Cardiac: Other (Irregular) Lungs: Other (Moist cough) Neuro: Alert and responsive, No focal deficits noted Abdomen: Soft, Non-Tender Skin: No rashes noted on visualized skin Musculoskeletal: No Chest Wall Tenderness Extremities: No Clubbing, No Cyanosis, No Edema, Normal Pulses Results 09/21/18 04:01 09/21/18 04:01 Lab Results 09/20/18 09/20/18 09/20/18 17:57 17:57 17:57 WBC 6.7 Hgb 11.1 L Hct 35.0 L Plt Count 310 INR 1.9 APTT 37.5 H Sodium 134 L Potassium 3.8 Chloride 103 Carbon Dioxide 23 BUN 13 Creatinine 0.67 Glucose 130 H Calcium 9.0 Magnesium 2.0 Total Bilirubin 0.3 AST 17 ALT 14 Alkaline Phosphatase 73 Troponin I < 0.03 B-Natriuretic Peptide 09/20/18 09/21/18 09/21/18 19:41 04:01 04:01 WBC 6.3 Hgb 10.9 L Hct 33.9 L Plt Count 292 INR 1.3 APTT Sodium Potassium Chloride Carbon Dioxide BUN Creatinine Glucose Calcium Magnesium Total Bilirubin AST ALT Alkaline Phosphatase Troponin I < 0.03 B-Natriuretic Peptide 09/21/18 09/21/18 04:01 04:01 WBC Hgb Hct Plt Count INR APTT Sodium 136 Potassium 3.5 Chloride 102 Carbon Dioxide 26 BUN 11 Creatinine 0.59 L Glucose 93 Calcium 9.1 Magnesium 1.8 Total Bilirubin AST ALT Alkaline Phosphatase Troponin I B-Natriuretic Peptide 346 H - Imaging and Cardiology Echo: report reviewed Cardiac cath: report reviewed - EKG Interpretation EKG results cardiology: personally reviewed (atrial fibrillation) Consult Discharge Plan - Plan Referrals: Pro Glover MD [Primary Care Provider] -
--- NOTE | 2018-09-21 11:26 | Cardiology Consult Note ---
<AniaCarlos Manuel R - Last Filed: 09/21/18 10:48> Date of Encounter: 09/21/18 Time of Encounter: 10:48 Assessment and Plan (1) Syncope Current Visit: Yes Status: Acute Reported syncopal event yesterday at urgent care. Started on Sotalol 40mg BID earlier this month for PAF and underwent DCCV. QTc at time of d/c 09/02/18 was 503ms. QTc this admission was 511ms. Pt also on Celexa. Sotalol was held given QTc >500ms, although appears stable. Syncope could be secondary to pt's moderate-severe aortic stenosis. (Peak and mean gradients are 50 30 mmHg, respectively. V1=151 cm/s, V1=80 cm/s, LVOT diameter 2cm, GE on continuity 0.7cm^2). Pt is on Imdur. Given severity and syncope, will stop Imdur and avoid nitrates. Repeat TTE. Will consult EP for antiarrhythmic recommendations. Qualifiers: Syncope type: unspecified Qualified Code(s): R55 - Syncope and collapse (2) Paroxysmal atrial fibrillation Current Visit: Yes Status: Chronic Known PAF, started on Sotalol 40mg BID earlier this month and underwent DCCV to SR. As above, Sotalol stopped due to QTc >500ms. Anticoagulated on Xarelto. Reports 3 missed doses in the past month. Consult EP for further recs. (3) Aortic stenosis Current Visit: Yes Status: Chronic TTE 06/2018 Moderate-severe aortic stenosis. (Peak and mean gradients are 50 30 mmHg, respectively. J7=978 cm/s, V1=80 cm/s, LVOT diameter 2cm, GE on continuity 0.7cm^2). Syncopal event yesterday. Will stop Imdur. Recheck TTE. Qualifiers: Cardiac valve disease etiology: etiology unspecified Qualified Code(s): I35.0 - Nonrheumatic aortic (valve) stenosis (4) CAD (coronary artery disease) Current Visit: No Status: Chronic Hx of CABG. Continue ASA, Statin. BB (Sotalol) held given syncope and QTc >500ms. Qualifiers: Coronary Disease-Associated Artery/Lesion type: [place] artery [place] vs. transplanted heart: [place] heart Associated angina: without angina Qualified Code(s): I25.10 - Atherosclerotic heart disease of [place] coronary artery without angina pectoris Discussion w patient/family: The assessment and plan as outlined above was discussed with the patient and/or family members who expressed understanding and agreement. All questions were a nswered. Thank you for involving us in the care of your patient. Please call with any questions. I will discuss all the above with Dr. Tran and make changes as necessary. History of Present Illness Consult date: 09/21/18 Consult reason: syncope, A-Fib Chief complaint: syncope History of present illness: Ms. Greene is a 78 year old female Ms. Greene is a 78 year old female w/ PMH of atrial fibrillation on Sotalol and Xarelto, HLD, HTN, CA and CADs/p CABG, moderate-severe who presented to [facility] ED on 09/20/18 as a transfer from urgent care via EMS for a syncopal episode. Patient initially presented to urgent care for a possible sinus infection. She complained of a worsening cough of 5 days duration. While in waiting room, she reportedly experienced dyspnea, fatigue, and a warm sensation. She had one syncopal episode while sitting, although pt is unable to recall exact details. Pt was recently started on Sotalol and underwent DCCV earlier this month. Currently back in A-Fib, rate controlled. Pt reports never feeling better since hospital discharge, continued dyspnea and fatigue. Denies chest pain. QTc at time of hospital d/c last admission, QTc was 503. QTc this admission 511. Cardiology consulted for further recs. TTE 07/22/18: LVEF 55%. Moderate diastolic function. Mildly dilated right ventricle with mild dysfunction. Mildly dilated left and right atrium. Severely calcified aortic valve leaflets. Moderate-severe aortic stenosis. (Peak and mean gradients are 50 30 mmHg, respectively. J5=506 cm/s, V1=80 cm/s, LVOT diameter 2cm, GE on continuity 0.7cm^2) Mild aortic regurgitation. Mild mitral regurgitation and mild tricuspid regurgitation. Low CVP, no pulmonary hypertension. Holter 09/04/17: Diary was not returned. Atrial fibrillation throughout the monitor. Average HR 71 bpm. Frequent pauses, many during nocturnal or morning hours. Longest pause of 4.0s at 0754. Occasional PVCs. One 5-beat NSVT or AF with aberrancy. [facility] 12/27/15: There is severe three vessel coronary artery disease. S/P CABG 3 of 3 patent bypass grafts. The left ventricle is normal and has normal contractility EF 55%. There is evidence of mild to Moderate stenosis of the aortic valve. Calcification with gradient 15mmHg. Past Med Surg Social Fam HX - Past Medical History Medical history: atrial fibrillation, coronary artery disease, hyperlipidemia, hypertension, myocardial infarction, other Additional medical history: CAD Psychiatric history: depression - Past Surgical History Surgical History: angioplasty/stent, appendectomy, cholecystectomy, coronary bypass (CABG), hysterectomy Additional surgical history: cardiac stenting x2. cardioversion - Social History Smoking Status: Current every day smoker Packs per day: 0.25 Smokeless Tobacco Status: No Alcohol use: none Drug use: none - Family History Daughter Living Status: Hx Family Cardiac Disorders: No Hx Family Respiratory Disorders: No Hx Family Cancer: Yes (breast cancer) Hx Family GI Disorders: No Hx Family Endocrine Disorder: No Hx Family Neuromuscular Disorders: No Hx Family Neurologic Disorders: No Hx Family HEENT Disorders: No Hx Family Autoimmune Disorders: No Mother Living Status: Hx Family Cardiac Disorders: Yes Hx Family Respiratory Disorders: No Hx Family Cancer: No Hx Family GI Disorders: No Hx Family Endocrine Disorder: No Hx Family Neuromuscular Disorders: No Hx Family Neurologic Disorders: No Hx Family HEENT Disorders: No Hx Family Autoimmune Disorders: No Sister Living Status: Hx Family Cardiac Disorders: Yes (heart diease) Hx Family Respiratory Disorders: No Hx Family Cancer: No Hx Family GI Disorders: No Hx Family Endocrine Disorder: Yes (DM) Hx Family Neuromuscular Disorders: No Hx Family Neurologic Disorders: No Hx Family HEENT Disorders: No Hx Family Autoimmune Disorders: No Son Living Status: Still Living Hx Family Cardiac Disorders: Yes (HTN, CA) Hx Family Respiratory Disorders: No Hx Family Cancer: No Hx Family GI Disorders: No Hx Family Endocrine Disorder: No Hx Family Neuromuscular Disorders: No Hx Family Neurologic Disorders: No Hx Family HEENT Disorders: No Hx Family Autoimmune Disorders: No Medications and Allergies RX: Aspirin Enteric Coated [Aspirin EC] 81 mg PO DAILY 10/01/16 [History] RX: Ergocalciferol (VITAMIN D2) [Vitamin D2] 50,000 unit PO QWEEK 10/01/16 [History] RX: Furosemide [Lasix] 40 mg PO DAILY 10/01/16 [History] RX: Potassium Chloride [K-Tab ER] 20 meq PO DAILY 10/01/16 [History] RX: carBAMazepine [Tegretol] 200 mg PO DAILY 10/01/16 [History] RX: raNITIdine HCl [Zantac] 150 mg PO BID 10/01/16 [History] RX: Atorvastatin [Lipitor] 20 mg PO HS tablet 10/03/16 [Rx] RX: Isosorbide MONOnitrate (24 HR) [Imdur] 60 mg PO DAILY tab.er.24h 10/03/16 [Rx] RX: Sucralfate [Carafate] 1 gm PO TIDAC 30 Days tablet 10/03/16 [Rx] RX: Citalopram Hydrobromide [Celexa] 40 mg PO DAILY 12/10/16 [History] RX: Gabapentin [Neurontin] 100 mg PO HS 12/10/16 [History] RX: Albuterol Sulfate [Albuterol Inhaler] 2 puff IH QID #1 inhaler 12/05/17 [Rx] RX: Oxycodone HCl/Acetaminophen [Percocet 5-325 mg Tablet] 1 tab PO QID PRN 08/30/18 [History] RX: Rivaroxaban [Xarelto] 20 mg PO DAILY 08/30/18 [History] RX: Sotalol [Betapace] 40 mg PO Q12H #60 tablet 09/02/18 [Rx] Allergy/AdvReac Type Severity Reaction Status Date / Time hydrocodone [From Vicodin] Allergy Itching Verified 09/20/18 17:52 codeine AdvReac Chest Pain Verified 09/20/18 17:52 All Systems Review: The remainder of the systems were reviewed and are negative - Constitutional Constitutional: fatigue - Cardiovascular Cardiovascular: as per HPI, dyspnea at rest, dyspnea on exertion, syncope - Respiratory Respiratory: dyspnea - Neurological Neurological: syncope Physical Examination Vital Signs, Last 4 Hours Temp Pulse Resp Pulse Ox 09/21/18 10:44 97.9 F 92 16 100 Vital Signs Temp Pulse Resp BP Pulse Ox 09/21/18 10:44 97.9 F 92 16 100 09/21/18 06:35 98.1 F 75 16 111/72 95 09/21/18 03:46 17 99 09/21/18 03:37 97.7 F 54 16 109/71 97 09/21/18 00:15 98.5 F 63 16 112/70 99 09/20/18 21:28 98.2 F 81 16 110/70 90 09/20/18 20:43 16 132/68 09/20/18 18:38 58 20 105/66 94 09/20/18 18:30 58 20 110/72 95 09/20/18 18:15 61 97 107/85 09/20/18 18:00 97.9 F 60 20 97/68 97 09/20/18 17:52 98 Intake and Output 09/20/18 09/21/18 09/21/18 23:59 07:59 15:59 Intake Total 1000 / 1000 Output Total 200 / 200 200 / 200 Balance -200 / -200 800 / 800 Intake: IV Fluids 1000 / 1000 0.9 % Sodium Chloride 1,000 ML 1000 / 1000 @ 100 mls/hr IVC .Q10H [facility] Rx#: [id number] Oral 0 / 0 Output: Urine 200 / 200 200 / 200 Other: Meal npo Percent of Meal Consumed 0% Weight 73 kg 73.6 kg Blood Glucose* 147 Patient Weight 09/21/18 23:59 Weight 73.6 kg General: Conversant, No Apparent Distress HEENT: Atraumatic, Normocephaly, Mucus Membranes Moist Neck: No JVD, Normal carotid pulses Cardiac: Other (irregularly irregular rhythm, 2/6 JV) Lungs: Normal Breath Sounds, No Wheeze, Rales, Rhonchi Neuro: Alert and responsive, No focal deficits noted Abdomen: Soft, Non-Tender Skin: No rashes noted on visualized skin Musculoskeletal: No Chest Wall Tenderness Extremities: No Clubbing, No Cyanosis, No Edema, Normal Pulses Results 09/21/18 04:01 09/21/18 04:01 Lab Results 09/20/18 09/20/18 09/20/18 17:57 17:57 17:57 WBC 6.7 Hgb 11.1 L Hct 35.0 L Plt Count 310 INR 1.9 APTT 37.5 H Sodium 134 L Potassium 3.8 Chloride 103 Carbon Dioxide 23 BUN 13 Creatinine 0.67 Glucose 130 H Calcium 9.0 Magnesium 2.0 Total Bilirubin 0.3 AST 17 ALT 14 Alkaline Phosphatase 73 Troponin I < 0.03 B-Natriuretic Peptide 09/20/18 09/21/18 09/21/18 19:41 04:01 04:01 WBC 6.3 Hgb 10.9 L Hct 33.9 L Plt Count 292 INR 1.3 APTT Sodium Potassium Chloride Carbon Dioxide BUN Creatinine Glucose Calcium Magnesium Total Bilirubin AST ALT Alkaline Phosphatase Troponin I < 0.03 B-Natriuretic Peptide 09/21/18 09/21/18 04:01 04:01 WBC Hgb Hct Plt Count INR APTT Sodium 136 Potassium 3.5 Chloride 102 Carbon Dioxide 26 BUN 11 Creatinine 0.59 L Glucose 93 Calcium 9.1 Magnesium 1.8 Total Bilirubin AST ALT Alkaline Phosphatase Troponin I B-Natriuretic Peptide 346 H Short CBC 09/21/18 09/20/18 Range/Units 04:01 17:57 WBC 6.3 6.7 (4.3-11.1) K/mcL Hgb 10.9 L 11.1 L (11.5-15.4) g/dL Hct 33.9 L 35.0 L (35.3-44.9) % Plt Count 292 310 (140-400) K/mcL Neutrophils # 3.9 4.3 (1.6-8.9) K/mcL BMP 09/21/18 09/20/18 Range/Units 04:01 17:57 Sodium 136 134 L (136-145) mEq/L Potassium 3.5 3.8 (3.5-5.1) mEq/L Chloride 102 103 (98-107) mEq/L Carbon Dioxide 26 23 (23-29) mEq/L BUN 11 13 (8-23) mg/dL Creatinine 0.59 L 0.67 (0.60-1.20) mg/dL Glucose 93 130 H (70-105) mg/dL Calcium 9.1 9.0 (8.6-10.3) mg/dL Cardiac Enzymes 09/20/18 09/20/18 Range/Units 19:41 17:57 Troponin I < 0.03 < 0.03 (< 0.04) ng/mL Liver Function 09/20/18 Range/Units 17:57 Total Bilirubin 0.3 (0.3-1.0) mg/dL Direct Bilirubin 0.1 (0.0-0.2) mg/dL AST 17 (13-39) Units/L ALT 14 (7-52) Units/L Alkaline Phosphatase 73 (34-104) Units/L Albumin 3.8 (3.5-5.7) g/dL Urine 09/20/18 Range/Units 22:30 Urine Color Yellow (Yellow) Urine Clarity Clear (Clear) Urine pH 6.5 (5.0-8.0) pH Units Ur Specific [place] 1.014 (1.010-1.025) Urine Protein Negative (Neg-Trace) mg/dL Urine Glucose (UA) Normal (Normal) mg/dL Impressions Chest X-Ray 09/20/18 17:47 IMPRESSION: No acute cardiopulmonary process. D/ / Ofelia Parsons MD / Ofelia Parsons MD Interpreting Provider: Ofelia Parsons MD Head CT 09/20/18 17:47 IMPRESSION: No acute intracranial abnormality. D/ / Eduardo Coe / Eduardo Coe Interpreting Provider: Eduardo Coe Active Medications Acetylcysteine (Acetylcysteine 10%) 2 ml IH QIDR [facility] Stop: 03/23/19 05:01 Last Admin: 09/21/18 10:36 Dose: 2 ml Albuterol Sulfate (Proventil Neb) 2.5 mg IH QIDR [facility]; Protocol Stop: 03/23/19 05:01 Last Admin: 09/21/18 10:36 Dose: 2.5 mg Aspirin (Aspirin Ec) 81 mg PO DAILY [facility] Stop: 03/23/19 09:01 Last Admin: 09/21/18 10:15 Dose: 81 mg Atorvastatin Calcium (Lipitor) 20 mg PO HS [facility] Stop: 03/23/19 21:01 Carbamazepine (Tegretol) 200 mg PO DAILY [facility]; Protocol Stop: 03/23/19 09:01 Last Admin: 09/21/18 10:16 Dose: 200 mg Citalopram Hydrobromide (Celexa) 40 mg PO DAILY [facility] Stop: 03/23/19 09:01 Last Admin: 09/21/18 10:16 Dose: 40 mg Ergocalciferol (Drisdol (50,000 Unit)) 50,000 unit PO Th@0900 [facility] Stop: 03/25/19 09:01 Famotidine (Pepcid) 20 mg PO BIDAC [facility] Stop: 03/23/19 07:31 Last Admin: 09/21/18 10:15 Dose: 20 mg Furosemide (Lasix) 40 mg PO DAILY [facility] Stop: 03/23/19 09:01 Last Admin: 09/21/18 10:16 Dose: 40 mg Gabapentin (Neurontin) 100 mg PO HS [facility] Stop: 03/23/19 21:01 Naloxone HCl (Narcan) 0.4 mg IVP Q2MIN PRN PRN Reason: SEE COMMENTS Stop: 03/22/19 21:32 Oxycodone/Acetaminophen (Percocet 5/325) 1 each PO QID PRN PRN Reason: Pain Stop: 03/22/19 23:19 Last Admin: 09/21/18 01:09 Dose: 1 each Potassium Chloride (Potassium Chloride) 20 meq PO DAILY [facility] Stop: 03/23/19 09:01 Last Admin: 09/21/18 10:16 Dose: 20 meq Rivaroxaban (Xarelto) 20 mg PO DAILY [facility] Stop: 03/23/19 09:01 Last Admin: 09/21/18 10:16 Dose: 20 mg Sucralfate (Carafate) 1 gm PO TIDAC [facility] Stop: 03/23/19 07:31 Last Admin: 09/21/18 10:15 Dose: 1 gm Consult Discharge Plan - Plan Referrals: Pro Glover MD [Primary Care Provider] - <Tavon Tran - Last Filed: 09/21/18 15:25> - Attending Attestation I have personally performed a face to face evaluation on this patient. I have reviewed and agree with the care plan. History and Exam by me shows: 78-year-old female with history of paroxysmal atrial fibrillation status post cardioversion with possible sick sinus syndrome and symptomatic bradycardia on sotalol with a long QTC, coronary artery disease status post left heart catheterization November 2015 with patent 3 grafts presents with fatigue tiredness and associated bradycardia. EP consultation, appreciated recomm endations Assessment and Plan Discussion w patient/family: The assessment and plan as outlined above was discussed with the patient and/or family members who expressed understanding and agreement. All questions were answered. Thank you for involving us in the care of your patient. Please call with any questions. History of Present Illness History of present illness: Ms. Greene is a 78 year old female All Systems Review: The remainder of the systems were reviewed and are negative Physical Examination Vital Signs, Last 4 Hours Temp Pulse Resp BP Pulse Ox 09/21/18 15:03 98.9 F 76 16 132/83 98 Results 09/21/18 04:01 09/21/18 04:01 Lab Results 09/20/18 09/20/18 09/20/18 17:57 17:57 17:57 WBC 6.7 Hgb 11.1 L Hct 35.0 L Plt Count 310 INR 1.9 APTT 37.5 H Sodium 134 L Potassium 3.8 Chloride 103 Carbon Dioxide 23 BUN 13 Creatinine 0.67 Glucose 130 H Calcium 9.0 Magnesium 2.0 Total Bilirubin 0.3 AST 17 ALT 14 Alkaline Phosphatase 73 Troponin I < 0.03 B-Natriuretic Peptide 09/20/18 09/21/18 09/21/18 19:41 04:01 04:01 WBC 6.3 Hgb 10.9 L Hct 33.9 L Plt Count 292 INR 1.3 APTT Sodium Potassium Chloride Carbon Dioxide BUN Creatinine Glucose Calcium Magnesium Total Bilirubin AST ALT Alkaline Phosphatase Troponin I < 0.03 B-Natriuretic Peptide 09/21/18 09/21/18 09/21/18 04:01 04:01 10:56 WBC Hgb Hct Plt Count INR APTT Sodium 136 Potassium 3.5 Chloride 102 Carbon Dioxide 26 BUN 11 Creatinine 0.59 L Glucose 93 Calcium 9.1 Magnesium 1.8 1.8 Total Bilirubin AST ALT Alkaline Phosphatase Troponin I B-Natriuretic Peptide 346 H
[2018-09-21] MEDS: Famotidine 20 MG TABLET PO SCH (17:15)
[2018-09-21] MEDS ORDERED: Gabapentin 100 MG CAPSULE PO SCH (21:00)
[2018-09-22] MEDS: Albuterol 2.5 MG/3 ML NEBULIZER IH SCH ×3 (04:16→15:20)
[2018-09-22] MEDS: Acetylcysteine 10% 2 ML INHSOL IH SCH ×3 (04:17→15:21)
[2018-09-22 04:34] LABS: BUN/Creatinine Ratio 22 (6-26); Blood Urea Nitrogen 12 mg/dL (8-23); Calcium 9.2 mg/dL (8.6-10.3); Carbon Dioxide 26 mEq/L (23-29); Chloride 104 mEq/L (98-107); Glucose 105 mg/dL (70-105); Magnesium 1.9 mg/dL (1.6-2.6); Osmolality,Calculated 284 (280-300); Potassium 3.8 mEq/L (3.5-5.1); Sodium 137 mEq/L (136-145); eGFR For Non-African Americans > 60 (> 60)
[2018-09-22] MEDS: Famotidine 20 MG TABLET PO SCH ×2 (06:02→15:43)
[2018-09-22] MEDS: Sucralfate 1 GM TABLET PO SCH ×3 (06:02→15:43)
[2018-09-22] MEDS: carBAMazepine 200 MG TABLET PO SCH (09:38)
[2018-09-22] MEDS: Furosemide 40 MG TABLET PO SCH (09:38)
[2018-09-22] MEDS: *HR* Rivaroxaban 10 MG TABLET PO SCH (09:38)
[2018-09-22] MEDS: Aspirin Enteric Coated 81 MG Tablet PO SCH (09:38)
--- NOTE | 2018-09-22 11:03 | Cardiology Progress Note ---
Date of Encounter: 09/22/18 Time of Encounter: 11:00 Assessment and Plan (1) Syncope Current Visit: Yes Status: Acute Reported syncopal event at urgent care. Started on Sotalol 40mg BID earlier this month for PAF and underwent DCCV. QTc at time of d/c 09/02/18 was 503ms. QTc this admission was 511ms. Pt also on Celexa. Sotalol stopped by EP yesterday. Recommend rate control/anticoagulation strategy and consider amiodarone in the future if warranted. Syncope of unclear cause. Has moderate-severe aortic stenosis. (V1/V2 106/383, PG/MG 59/32, LVOT 2, GE 0.87). Pt was on Imdur. Given severity and syncope, stopped Imdur and recommend avoiding nitrates. No further inpt testing warranted. Will follow-up closely as outpt with EP and general cardiology in 2-3 weeks. Cardiology signing off. Reconsult PRN. Qualifiers: Syncope type: unspecified Qualified Code(s): R55 - Syncope and collapse (2) Paroxysmal atrial fibrillation Current Visit: Yes Status: Chronic Known PAF, started on Sotalol 40mg BID earlier this month and underwent DCCV to SR. Presents back in atrial fibrillation. As above, Sotalol stopped, considered failed. Recommend rate control and anticoagulation at this point. Continue xarelto. Can consider amiodarone in the future if needed. 12 hr tele AVG HR 69, A-Fib. Minimum HR 50, no significant pauses. Given syncope on presentation, ongoing fatigue and controlled HR, will not restart any BB at this time, but can consider at outpt follow-up if warranted. (3) Aortic stenosis Current Visit: Yes Status: Chronic TTE moderate-severe V1/V2 106/383, PG/MG 59/32, LVOT 2, GE 0.87. Syncopal event prior to presentation. Stopped Imdur. Close outpt follow-up and can determine if further testing is warranted. Qualifiers: Cardiac valve disease etiology: etiology unspecified Qualified Code(s): I35.0 - Nonrheumatic aortic (valve) stenosis (4) CAD (coronary artery disease) Current Visit: No Status: Chronic Hx of CABG. Continue ASA, Statin. BB (Sotalol) stopped given syncope, bradycardia as above. Qualifiers: Coronary Disease-Associated Artery/Lesion type: [place] artery [place] vs. transplanted heart: [place] heart Associated angina: without angina Qualified Code(s): I25.10 - Atherosclerotic heart disease of [place] coronary artery without angina pectoris Discussion w patient/family: The assessment and plan as outlined above was discussed with the patient and/or family members who expressed understanding and agreement. All questions were answered. Thank you for involving us in the care of your patient. Please call with any questions. I will discuss all the above with Dr. Tran and make changes as necessary. Subjective Principal diagnosis: Syncope Interval history: Pt reports still having significant fatigue. Sotalol stopped yesterday. 12 hr tele AVG HR 59, minimum HR noted was 50, no significant pauses. TTE resulted--EF 55-60%, moderate-severe V1/V2 106/383, PG/MG 59/32, LVOT 2, GE 0.87. Objective Vital Signs, Last 4 Hours Temp Pulse Resp BP Pulse Ox 09/22/18 07:24 98.0 F 62 16 112/69 98 Vital Signs Temp Pulse Resp BP Pulse Ox 09/22/18 07:24 98.0 F 62 16 112/69 98 09/22/18 04:18 18 98 09/22/18 03:52 97.9 F 63 16 141/69 97 09/21/18 23:02 98.4 F 74 16 138/77 95 09/21/18 22:43 18 97 09/21/18 20:10 98.4 F 70 14 130/79 97 09/21/18 16:14 16 98 09/21/18 15:40 98.6 F 87 16 102/67 09/21/18 15:03 98.9 F 76 16 132/83 98 Intake and Output 09/21/18 09/22/18 09/22/18 23:59 07:59 15:59 Intake Total 300 / 300 120 / 120 Output Total 300 / 300 200 / 200 0 / 0 Balance 0 / 0 -200 / -200 120 / 120 Intake: Oral 300 / 300 120 / 120 Output: Urine 300 / 300 200 / 200 0 / 0 Other: Meal Breakfast Percent of Meal Consumed 15% Weight 74.1 kg Patient Weight 09/22/18 23:59 Weight 74.1 kg General: Conversant, No Apparent Distress HEENT: Atraumatic, Normocephaly, Mucus Membranes Moist Neck: No JVD, Normal carotid pulses Cardiac: Other (irregularly irregular) Lungs: Normal Breath Sounds, No Wheeze, Rales, Rhonchi Neuro: Alert and responsive, No focal deficits noted Abdomen: Soft, Non-Tender Skin: No rashes noted on visualized skin Musculoskeletal: No Chest Wall Tenderness Extremities: No Clubbing, No Cyanosis, No Edema, Normal Pulses Results 09/21/18 04:01 09/22/18 03:47 Lab Results 09/21/18 09/22/18 10:56 03:47 Sodium 137 Potassium 3.8 Chloride 104 Carbon Dioxide 26 BUN 12 Creatinine 0.55 L Glucose 105 Calcium 9.2 Magnesium 1.8 1.9 BMP 09/22/18 Range/Units 03:47 Sodium 137 (136-145) mEq/L Potassium 3.8 (3.5-5.1) mEq/L Chloride 104 (98-107) mEq/L Carbon Dioxide 26 (23-29) mEq/L BUN 12 (8-23) mg/dL Creatinine 0.55 L (0.60-1.20) mg/dL Glucose 105 (70-105) mg/dL Calcium 9.2 (8.6-10.3) mg/dL Impressions Echocardiogram 09/21/18 11:12 Impressions: Atrial fibrillation. LVEF 55-60%. Normal LV chamber size, wall thickness and systolic function. Normal right ventricular structure with mild dysfunction. Mildly dilated left and right atrium. Moderate-severe aortic stenosis. Mild aortic regurgitation. Mild tricuspid regurgitation. Active Medications [facility] ([facility] 10%) [facility]: 03/23/19 05:01 Last Admin: 09/22/18 10:48 Dose: 2 ml Albuterol Sulfate ([facility]il Neb) [facility] Protocol Stop: 03/23/19 05:01 Last Admin: 09/22/18 10:47 Dose: 2.5 mg Aspirin (Aspirin Ec) 81 mg PO DAILY [facility] Stop: 03/23/19 09:01 Last Admin: 09/22/18 09:38 Dose: 81 mg Atorvastatin Calcium (Lipitor) 20 mg PO HS [facility] Stop: 03/23/19 21:01 Last Admin: 09/21/18 21:05 Dose: 20 mg Carbamazepine (Tegretol) 200 mg PO DAILY [facility]; Protocol Stop: 03/23/19 09:01 Last Admin: 09/22/18 09:38 Dose: 200 mg Citalopram Hydrobromide (Celexa) 40 mg PO DAILY [facility] Stop: 03/23/19 09:01 Last Admin: 09/22/18 09:38 Dose: 40 mg Ergocalciferol (Drisdol (50,000 Unit)) 50,000 unit PO Th@0900 [facility] Stop: 03/25/19 09:01 Famotidine (Pepcid) 10 mg PO BIDAC [facility] Stop: 03/23/19 07:31 Last Admin: 09/22/18 06:02 Dose: 10 mg Furosemide (Lasix) 40 mg PO DAILY [facility] Stop: 03/23/19 09:01 Last Admin: 09/22/18 09:38 Dose: 40 mg Gabapentin (Neurontin) 100 mg PO HS [facility] Stop: 03/23/19 21:01 Last Admin: 09/21/18 21:05 Dose: 100 mg Naloxone HCl (Narcan) 0.4 mg IVP Q2MIN PRN PRN Reason: SEE COMMENTS Stop: 03/22/19 21:32 Oxycodone/Acetaminophen (Percocet 5/325) 1 each PO QID PRN PRN Reason: Pain Stop: 03/22/19 23:19 Last Admin: 09/21/18 19:51 Dose: 1 each Potassium Chloride (Potassium Chloride) 20 meq PO DAILY [facility] Stop: 03/23/19 09:01 Last Admin: 09/22/18 09:38 Dose: 20 meq Rivaroxaban (Xarelto) 20 mg PO DAILY [facility] Stop: 03/23/19 09:01 Last Admin: 09/22/18 09:38 Dose: 20 mg Sucralfate (Carafate) 1 gm PO TIDAC [facility] Stop: 03/23/19 07:31 Last Admin: 09/22/18 06:02 Dose: 1 gm - Imaging and Cardiology Echo: report reviewed - EKG Interpretation EKG results cardiology: other (12 hr tele AVG HR 69, lowest HR 50, A-Fib, no significant pauses) Consult Discharge Plan - Plan Referrals: Pro Glover MD [Primary Care Provider] -
--- NOTE | 2018-09-22 14:20 | Discharge Summary ---
- NOTES TO OUTPATIENT PROVIDER Notes to Outpatient Provider: Had syncopal episode at urgent care. Recently started on sotalol 40 mg twice a day earlier this month QTC at time of discharge was 09/02/18 was 503 MS. On presentation QTC was 511 MS patient was also on Celexa sotalol was stopped by EP recommending rate control/anticoagulation strategy consider amiodarone in the future if warranted. Patient does have moderate to severe aortic stenosis was also on Imdur Imdur was stopped and recommend avoiding nitrates per cardiology. Follow-up with cardiology Date of Encounter: 09/22/18 Time of Encounter: 14:21 - Discharge Diagnosis (1) CAD (coronary artery disease) Priority: Secondary Status: Chronic Qualifiers: Coronary Disease-Associated Artery/Lesion type: [place] artery [place] vs. transplanted heart: [place] heart Associated angina: without angina Qualified Code(s): I25.10 - Atherosclerotic heart disease of [place] coronary artery without angina pectoris (2) Atrial fibrillation Priority: Secondary Status: Chronic Qualifiers: Atrial fibrillation type: unspecified Qualified Code(s): I48.91 - Unspecified atrial fibrillation (3) Syncope Priority: Primary Status: Resolved Qualifiers: Syncope type: unspecified Qualified Code(s): R55 - Syncope and collapse (4) QT prolongation Priority: Secondary Status: Acute (5) Upper respiratory infection Priority: Secondary Status: Acute Qualifiers: URI type: unspecified URI Qualified Code(s): J06.9 - Acute upper respiratory infection, unspecified (6) Depression Priority: Secondary Status: Chronic Qualifiers: Depression Type: unspecified Qualified Code(s): F32.9 - Major depressive disorder, single episode, unspecified (7) Diastolic CHF Priority: Secondary Status: Acute Qualifiers: Heart failure chronicity: chronic Qualified Code(s): I50.32 - Chronic diastolic (congestive) heart failure Hospital course: Ms. Greene is a 78 year old female past mother history of atrophic fibrillation on xarelto inserted along hyperlipidemia hypertension and CA CAD status post CABG moderate to severe AST presented to [facility] ED on 09/20/82 from urgent care via EMS after experiencing a syncopal episode. Patient initially presented to urgent care for upper respiratory symptoms. She was complaining of a cough that has been persistent for approximately 5 days. In the waiting room she probably experienced dyspnea fatigue and a warm sensation. She does not have a single syncopal episode while sitting. She did not strike her head. In the ER CT of head was obtained which was negative for any acute abnormality. EKG was obtained which did show atrial fibrillation and a prolonged QTC 511ms. A. fib is rate controlled Patient was recently started on sotalol 40 mg twice a day later this month for PAF and underwent DC CV QTC on 09/02/18 was 503ms. She is also on Celexa Lab work was unremarkable, orthostatic vital signs obtained and were within normal limits. Cardiac echo was obtained which did show LVEF 55-60% moderate to severe aortic stenosis cardiology was consulted. Sotalol was stopped-cardiology recommending rate control anticoagulation continue Xarelto and consider amiodarone in the future if needed -due to her aortic stenosis severity and a syncopal episode -Imdur was stopped and cardiology recommending avoiding nitrates. Cardiology recommending no further inpatient testing and follow-up with EP in general cardiology as outpatient. Patient has not had any chest pain or shortness of breath during admission. She continues to be in atrial fibrillation with average heart rate around 69. Cause of syncopal episode is unclear however Suspect episode may have been triggered by both severe aortic stenosis and Imdur as well as prolonged QTC or A. fib. Advised patient to follow-up with cardiology as well as primary care provider since these providers know her best and can adjust medications accordingly. Advised patient to return to the emergency department experiencing any palpitations chest pain near syncope or syncopal episodes. Patient verbalized understanding she is currently hemodynamically stable at this time and is ready for discharge - Time Spent with Patient Total time spent providing and/or coordinating discharge services: - Discharge Medications Home Medications: Aspirin Enteric Coated [Aspirin EC] 81 mg PO DAILY 10/01/16 [History] Ergocalciferol (VITAMIN D2) [Vitamin D2] 50,000 unit PO QWEEK 10/01/16 [History] Furosemide [Lasix] 40 mg PO DAILY 10/01/16 [History] Potassium Chloride [K-Tab ER] 20 meq PO DAILY 10/01/16 [History] carBAMazepine [Tegretol] 200 mg PO DAILY 10/01/16 [History] raNITIdine HCl [Zantac] 150 mg PO BID 10/01/16 [History] Atorvastatin [Lipitor] 20 mg PO HS tablet 10/03/16 [Rx] Sucralfate [Carafate] 1 gm PO TIDAC 30 Days tablet 10/03/16 [Rx] Citalopram Hydrobromide [Celexa] 40 mg PO DAILY 12/10/16 [History] Gabapentin [Neurontin] 100 mg PO HS 12/10/16 [History] Albuterol Sulfate [Albuterol Inhaler] 2 puff IH QID #1 inhaler 12/05/17 [Rx] Oxycodone HCl/Acetaminophen [Percocet 5-325 mg Tablet] 1 tab PO QID PRN 08/30/18 [History] Rivaroxaban [Xarelto] 20 mg PO DAILY 08/30/18 [History] Allergies/Adverse Reactions: Allergy/AdvReac Type Severity Reaction Status Date / Time hydrocodone [From Vicodin] Allergy Itching Verified 09/20/18 17:52 codeine AdvReac Chest Pain Verified 09/20/18 17:52 Date of admission: 09/20/18 20:03 Primary care physician: Pro Glover MD Consults: 09/20/18 19:49 Consult to Cardiology [CONS] Stat Comment: Consulting Provider: Cardiology [place] Reason for Consult: syncope. on sotalol. Time Notified: 19:49 Call Completed: Yes 09/22/18 13:34 Consult to Electrophysiology (EP) [CONS] Routine Consulting Provider: Electrophysiology [facility] Reason for Consult: PAF Call Completed: Yes Discharging clinician: Sharifa Lynn Anticipated date of discharge: 09/22/18 - Constitutional Vitals: Temp Pulse Resp BP Pulse Ox 97.9 F 68 16 115/73 99 09/22/18 11:26 09/22/18 11:26 09/22/18 11:26 09/22/18 11:26 09/22/18 11:26 General appearance: Present: cooperative, A&O X 3, pleasant, no acute distress Exam: General: Alert and oriented 4. In mild distress due to nausea, lightheadedness. Skin: Normal color, no rash, no lesions. HEENT: EOM, pupils equal, round and reactive. Cardiovascular: Irregularly, irregular, Normal S1 & S2, no rubs, murmurs or gallops. JVD about 6cm. Lungs: Clear to auscultation bilaterally., no wheezes or crackles. Abdomen: Obese, Soft, non-tender, no rigidity. Extremities:No deformity, no edema or tenderness, no joint swelling or clubbing. Neurological: Normal cognition and motor skills. Rest of the physical exam is non contributory - Patient Status Disposition: Home, Self-Care Condition: Fair Functional capacity at discharge: independent ambulation - Discharge Instructions Instructions: Syncope (DC) Follow Up With: Pro Glover MD [Primary Care Provider] - - Diet and Activity Activity: increase activity as tolerated Diet: advance to your usual diet
[2018-09-22 16:23] VITALS: BP 112/78
--- NOTE | 2018-09-24 16:12 | Electrocardiograph Report ---
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
--- NOTE | 2018-09-24 16:12 | Electrocardiograph Report ---
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
--- NOTE | 2018-09-24 16:13 | Electrocardiograph Report ---
[place] [address] Test Date: 2018-09-20 Pat Name: Alison Greene Department: EXAM15 Room: 3B24 Gender: F [place]: : 1940 Requested By: Abilio Fitzpatrick Order Number: [id number] Reading MD: Stephen Marks Measurements Intervals [place] Rate: 58 P: [place]: QRS: -18 QRSD: 112 T: 235 QT: 499 QTc: 491 Interpretive Statements Atrial fibrillation IVCD Prolonged QT interval Inferior and anteroalteral ST-T changes possible due to ischemia Electronically Signed On 09-24-2018 16:11:52 EDT by Stephen Marks
== END 2018-09-22 19:00 | disposition home or self-care (01) ==
LOC: EMEROOARM 17:42 → 3BNU 17:42
PROVIDERS: ADMIT Pediatrics; ATTEND Pediatrics

== ENCOUNTER 2019-02-26 12:57 | Inpatient (IN) ==
[2019-02-26] MEDS ORDERED: *HR* OxyCODONE Immed Rel 5 MG TABLET PO STA (13:39)
[2019-02-26] MEDS ORDERED: Ondansetron ODT 4 MG TAB.RAPDIS SL ONE (13:39)
--- NOTE | 2019-02-26 13:42 | Emergency Department Note ---
Disposition Clinical Impression: Status post cardiac catheterization, Pseudoaneurysm Leg pain Qualifiers: Laterality: unspecified laterality Qualified Code(s): M79.606 - Pain in leg, unspecified Disposition: Admitted As Inpatient Condition: Good Extremity Problem HPI - General Chief complaint: ED Extremity Problem,Nontraumatic Stated complaint: leg pain Time Seen by Provider: 02/26/19 13:10 Source: patient, EMS Limitations: no limitations Nursing Notes Reviewed: Yes Vital Signs Reviewed: Yes - History of Present Illness HPI Narrative: Patient with significant cardiac history including A. fib and in need for further evaluation for valve replacement who is here today complaining of right inguinal pain and leg pain status post cardiac catheterization yesterday. Patient has pain with muscle movements. Patient does not have any numbness or tingling into the foot. The foot is not cold. The patient did take a Percocet this morning which did not significantly alleviate her pain. She does have significant ecchymosis throughout the leg as well as tenderness. Patient will be given pain control as well as undergo further evaluation for bleeding and possible aneurysm. Pain Scale: 9 - Related Data Home Medications Medication Instructions Recorded Confirmed RX: Aspirin Enteric Coated 81 mg PO HS 10/01/16 02/26/19 [Aspirin EC] RX: Potassium Chloride [K-Tab ER] 20 meq PO DAILY 10/01/16 02/26/19 RX: carBAMazepine [Tegretol] 200 mg PO DAILY 10/01/16 02/26/19 RX: Citalopram Hydrobromide 40 mg PO DAILY 12/10/16 02/26/19 [Celexa] RX: Oxycodone HCl/Acetaminophen 1 tab PO QID PRN 08/30/18 02/26/19 [Percocet 5-325 mg Tablet] RX: Baclofen [Lioresal] 10 mg PO HS PRN 10/07/18 02/26/19 RX: Ergocalciferol (VITAMIN D2) 50,000 unit PO TH 10/07/18 02/26/19 [Vitamin D2] RX: Loratadine [Allergy Relief] 10 mg PO DAILY 10/07/18 02/26/19 RX: Albuterol Sulfate [Ventolin 2 puff IH Q4H PRN 11/08/18 02/26/19 Hfa] RX: Atorvastatin Calcium [Lipitor] 20 mg PO HS 11/08/18 02/26/19 RX: Ferrous Sulfate 325 mg PO BID 11/08/18 02/26/19 RX: Gabapentin [Neurontin] 300 mg PO BID 11/08/18 02/26/19 RX: Sucralfate [Carafate] 1 gm PO TIDAC 11/08/18 02/26/19 RX: dilTIAZem HCl [Diltiazem 24Hr 120 mg PO DAILY 11/08/18 02/26/19 ER] RX: Enoxaparin [Lovenox] 80 mg SQ Q12HR 02/25/19 02/26/19 RX: Warfarin [Coumadin] 5 mg PO MOTUTHFRSA 02/25/19 02/26/19 Ascorbic Acid [C-500] 500 mg PO BID 02/26/19 02/26/19 Warfarin [Coumadin] 7.5 mg PO SUWE 02/26/19 02/26/19 Previous Rx's Medication Instructions Recorded RX: Omeprazole [PriLOSEC] 20 mg PO BID #60 capsule. 11/08/18 RX: Furosemide [Lasix] 20 mg PO BID #60 tablet 11/22/18 Allergies Allergy/AdvReac Type Severity Reaction Status Date / Time hydrocodone [From Vicodin] Allergy Itching Verified 11/08/18 09:14 apixaban [From Eliquis] AdvReac See Verified 02/25/19 07:38 Comments azithromycin AdvReac Diarrhea Verified 11/08/18 09:14 codeine AdvReac CHEST Verified 11/08/18 09:14 TIGHTNESS dabigatran etexilate AdvReac See Verified 02/25/19 07:38 [From Pradaxa] Comments All systems ED: reviewed and negative except as stated. Review of Systems: As Per HPI Constitutional: Denies: fever, chills ENT ED: Denies: congestion Cardiovascular: Denies: chest pain, palpitations, syncope Respiratory: Denies: cough, dyspnea Gastrointestinal: Denies: abdominal pain, nausea Musculoskeletal: Denies: back pain Integumentary: Reports: other (Ecchymosis to the right upper thigh) Endocrine: Denies: fatigue Past Medical History - Past Medical History Medical history: Reports: COPD, coronary artery disease, GI bleed, hyperlipidemia, hypertension, myocardial infarction, seizures, syncope, valvular heart disease, other Surgical history: Reports: angioplasty/stent, appendectomy, cholecystectomy, coronary bypass (CABG), hysterectomy, pacemaker/AICD Psychiatric history: Reports: anxiety, depression GRADES 1 6 TUTOR history: Reports: non-contributory - Social History Smoking Status: Current every day smoker Smokeless Tobacco Status: No Alcohol use: Reports: none Drug use: Reports: none Physical Exam General: Well appearing, nontoxic, no acute distress Head: Normocephalic Atraumatic Eyes: PERRL, EOMI ENT: Airway patent, no stridor Neck: supple, no meningismus Chest: Lungs clear to auscultation bilateral Cardiac: Irregular rhythm Abdomen: soft, nontender, nondistended; no guarding, rebound, or tenderness to percussion Musculoskeletal: Calves symmetric, nontender. Skin: Significant ecchymosis throughout the abdomen from previous Lovenox injections. Patient with ecchymosis throughout the right thigh from cardiac catheterization with significant tenderness to palpation. Patient has full sensation throughout the lower extremities. Cap refill is symmetric. Neuro: Alert and Oriented to person, place, and time; No obvious focal deficit. - General Limitations: no limitations General appearance: alert Course - Reevaluation(s) Reevaluation #1: , Discussed with the patient. Patient with pseudoaneurysm. Patient will need admission for further management. Further pain medications ordered. Patient neurovascularly intact throughout the distal extremities. - Consultations Consultation #1: Discussed with vascular surgeon, Dr. Burnett, patient will need to be made nothing by mouth, pain control, bed rest. He will further evaluate the vascular study imaging in regards to appropriate treatment recommendations. Consultation #2: Discussed with hospitalist. Patient accepted for admission. Vital Signs Temperature 98 F 02/26/19 13:01 Pulse Rate 78 02/26/19 13:01 Respiratory Rate 18 02/26/19 13:01 Blood Pressure 100/82 02/26/19 13:01 O2 Sat by Pulse Oximetry 98 02/26/19 13:01 Temperature 98 F 02/26/19 13:01 Pulse Rate 73 02/26/19 15:30 Respiratory Rate 18 02/26/19 17:53 Blood Pressure 105/59 02/26/19 17:53 O2 Sat by Pulse Oximetry 100 02/26/19 15:30 Oxygen Delivery Oxygen Delivery Room Air Extremity Problem, Nontraumati - Medical Records Medical records reviewed: Yes I reviewed the patient's medical records. - Lab Data Lab results reviewed: Yes I reviewed the patient's lab results. Result diagrams: 02/26/19 13:42 02/26/19 13:42 Lab Results 02/26/19 02/26/19 02/26/19 Range/Units 13:42 13:42 13:42 WBC 7.4 (4.3-11.1) K/mcL RBC 3.53 L (3.82-4.97) M/mcL Hgb 11.2 L (11.5-15.4) g/dL Hct 33.1 L (35.3-44.9) % MCV 93.8 (83.0-100.0) fL MCH 31.7 (28.0-33.3) pg MCHC 33.8 (31.6-35.5) g/dL RDW 14.8 H (11.5-14.5) % Plt Count 196 (140-400) K/mcL MPV 8.7 L (9.4-12.4) fL Immature Gran % 0.1 (0-4) % Seg Neutrophils % 72.5 % Lymphocytes % 16.4 % Monocytes % 9.6 % Eosinophils % 1.1 % Basophils % 0.3 % Neutrophils # 5.4 (1.6-8.9) K/mcL Lymphocytes # 1.2 (0.6-4.6) K/mcL Monocytes # 0.7 (0.0-1.3) K/mcL Eosinophils # 0.1 (0.0-0.6) K/mcL Basophils # 0.0 (0.0-0.2) K/mcL PT 12.2 H (9.4-12.1) Seconds INR 1.1 Sodium 136 (136-145) mEq/L Potassium 4.1 (3.5-5.1) mEq/L Chloride 103 (98-107) mEq/L Carbon Dioxide 29 (23-29) mEq/L BUN 13 (8-23) mg/dL Creatinine 0.59 L (0.60-1.20) mg/dL Est GFR ( Amer) > 60 (> 60) Est GFR (Non-Af Amer) > 60 (> 60) BUN/Creatinine Ratio 22 (6-26) Glucose 107 H (70-105) mg/dL Calculated Osmolality 283 (280-300) Calcium 8.9 (8.6-10.3) mg/dL - Radiology Data Radiology results reviewed: Yes I reviewed the patient's radiology results. - EKG Data EKG attestation: Yes I reviewed and interpreted this EKG. EKG results narrative: EKG shows atrial fibrillation with a heart rate [address] elevations or depressions. T-wave inversions in the lateral leads.
[2019-02-26 14:11] LABS: Basophils % 0.3 %; Eosinophils # 0.1 K/mcL (0.0-0.6); Eosinophils % 1.1 %; Hematocrit 33.1 % (35.3-44.9); Hemoglobin 11.2 g/dL (11.5-15.4); Immature Granulocytes % 0.1 % (0-4); Lymphocytes # 1.2 K/mcL (0.6-4.6); Lymphocytes % 16.4 %; Mean Corpuscular HGB Conc 33.8 g/dL (31.6-35.5); Mean Corpuscular Hemoglobin 31.7 pg (28.0-33.3); Mean Corpuscular Volume 93.8 fL (83.0-100.0); Mean Platelet Volume 8.7 fL (9.4-12.4); Monocytes # 0.7 K/mcL (0.0-1.3); Monocytes % 9.6 %; Neutrophils # 5.4 K/mcL (1.6-8.9); Platelet Count 196 K/mcL (140-400); Red Blood Count 3.53 M/mcL (3.82-4.97); Red Cell Distribution Width 14.8 % (11.5-14.5); Segmented Neutrophils % 72.5 %
[2019-02-26 14:22] LABS: INR 1.1; Prothrombin Time 12.2 Seconds (9.4-12.1)
[2019-02-26 14:32] LABS: BUN/Creatinine Ratio 22 (6-26); Blood Urea Nitrogen 13 mg/dL (8-23); Calcium 8.9 mg/dL (8.6-10.3); Carbon Dioxide 29 mEq/L (23-29); Chloride 103 mEq/L (98-107); Glucose 107 mg/dL (70-105); Osmolality,Calculated 283 (280-300); Potassium 4.1 mEq/L (3.5-5.1); Sodium 136 mEq/L (136-145); eGFR For Non-African Americans > 60 (> 60)
[2019-02-26] MEDS ORDERED: Naloxone 0.4 MG/ML INJ IVP PRN (18:52)
--- NOTE | 2019-02-26 18:57 | Internal Med History&Physical ---
Date of Encounter: 02/26/19 Time of Encounter: 18:30 Internal Medicine - H&P: HPI Chief complaint: Pain and swelling of right thigh. Admitted From: Home Plans for Post Hospital Care: Home History of present illness: The patient is a 78-year-old woman. Yesterday, she underwent cardiac catheterization to evaluate her coronary arteries, in preparation for possible TAVR. She has underlying paroxysmal atrial fibrillation. She was sent home on warfarin and bridging Lovenox. Then, she gradually developed severe pain/swelling in the area of her right thigh; with a few areas of ecchymosis. She came to our emergency room for evaluation and treatment. The patient was found to have pseudoaneurysm of right femoral artery. Vascular surgery consult has been requested. PAST MEDICAL HX: The patient has had coronary artery disease, paroxysmal atrial fibrillation and severe aortic stenosis. She is treated for COPD, hypertension, hyperlipidemia, seizure disorder, GERD, DJD and depression with anxiety. Cardiac catheterization from yesterday showed severe three-vessel coronary artery disease. The patient had CABG surgery in the past. She has 2 out of 3 patent bypass grafts. It showed severe diffuse disease of the RCA. It was recommended to do PCI of the RCA lesion, if patient was deemed to be a candidate for TAVR. Echocardiogram from 11/20/18 showed ejection fraction of 50%. It showed aortic stenosis with the estimated aortic valve area of approximately 0.7 cm2. PAST FAMILY HX: See below PAST SOCIAL HX: She is a current every day smoker. She denies alcohol and illicit drug use. REVIEW OF SYSTEMS: All 14 organ systems were reviewed by me with the patient. Positive and pertinent negative findings are listed above. The rest of organ systems is negative. PHYSICAL EXAM: Skin: There is a few areas of ecchymosesright thigh area. Associated with swelling and tenderness of the right thigh. The rest of her skin is free of rash and discoloration. Eyes: Sclera is white. There is no discharge from eyes. ENMT: Oral/pharyngeal mucosa is normal in appearance. There is no discharge from nose or ears. Respiratory: Normal breath sounds with no crackles and wheezes bilaterally. CV: Heart is regular with no gallop or murmur. GI: Abdomen is flat and soft with no palpable mass or visceromegaly. : There is no tenderness in patient's flanks bilaterally. Neuro exam: He has good strength in upper and lower extremities. He has normal eye movements. Psychiatric: He has normal affect. His thought process is appropriate to the situation. ADDITIONAL DATA: EKG shows atrial fibrillation with ventricular response of about 77/min. Hemoglobin his 11.2 with WBC of 7.4 thousand and normal platelet count. Pro time INR is 1.1. BMP is normal (creatinine of 0.59). A/P: Suspected pseudoaneurysm of right femoral artery, resulting from yesterday cardiac catheterization. Vascular surgery was consulted. We will keep her warfarin and bridging Lovenox on hold prescribed for her paroxysmal atrial fibrillation). We will monitor her hemoglobin closely. Coronary artery disease. See cardiac cath report from yesterdayabove. The patient may benefit from PCI of right coronary artery. To continue her previous medications for that problem. Paroxysmal atrial fibrillation. Rate controlled. To continue Cardizem CD. Severe aortic stenosis. See above. Her other medical problems are mentioned in past medical history. That is stable/under control. Past Med Surg Social Fam HX - Past Medical History Medical history: COPD, coronary artery disease, GI bleed, hyperlipidemia, hypertension, myocardial infarction, seizures, syncope, valvular heart disease, other Additional medical history: osteoarthritis - angina Psychiatric history: anxiety, depression - Past Surgical History Surgical History: angioplasty/stent, appendectomy, cholecystectomy, coronary bypass (CABG), hysterectomy, pacemaker/AICD Additional surgical history: heart cath yesterday - Social History Smoking Status: Current every day smoker Smokeless Tobacco Status: No Alcohol use: none Drug use: none - Family History Mother Living Status: Hx Family Cardiac Disorders: Yes Hx Family Respiratory Disorders: No Hx Family Cancer: No Hx Family GI Disorders: No Hx Family Endocrine Disorder: No Hx Family Neuromuscular Disorders: No Hx Family Neurologic Disorders: No Hx Family HEENT Disorders: No Hx Family Autoimmune Disorders: No Sister Living Status: Hx Family Cardiac Disorders: Yes (heart diease) Hx Family Respiratory Disorders: No Hx Family Cancer: No Hx Family GI Disorders: No Hx Family Endocrine Disorder: Yes (DM) Hx Family Neuromuscular Disorders: No Hx Family Neurologic Disorders: No Hx Family HEENT Disorders: No Hx Family Autoimmune Disorders: No Daughter Living Status: Hx Family Cardiac Disorders: No Hx Family Respiratory Disorders: No Hx Family Cancer: Yes (breast cancer) Hx Family GI Disorders: No Hx Family Endocrine Disorder: No Hx Family Neuromuscular Disorders: No Hx Family Neurologic Disorders: No Hx Family HEENT Disorders: No Hx Family Autoimmune Disorders: No Son Living Status: Still Living Hx Family Cardiac Disorders: Yes (HTN, [place]) Hx Family Respiratory Disorders: No Hx Family Cancer: No Hx Family GI Disorders: No Hx Family Endocrine Disorder: No Hx Family Neuromuscular Disorders: No Hx Family Neurologic Disorders: No Hx Family HEENT Disorders: No Hx Family Autoimmune Disorders: No Internal Medicine - H&P: Meds Aspirin Enteric Coated [Aspirin EC] 81 mg PO HS 10/01/16 [History] Potassium Chloride [K-Tab ER] 20 meq PO DAILY 10/01/16 [History] carBAMazepine [Tegretol] 200 mg PO DAILY 10/01/16 [History] Citalopram Hydrobromide [Celexa] 40 mg PO DAILY 12/10/16 [History] Oxycodone HCl/Acetaminophen [Percocet 5-325 mg Tablet] 1 tab PO QID PRN 08/30/18 [History] Baclofen [Lioresal] 10 mg PO HS PRN 10/07/18 [History] Ergocalciferol (VITAMIN D2) [Vitamin D2] 50,000 unit PO TH 10/07/18 [History] Loratadine [Allergy Relief] 10 mg PO DAILY 10/07/18 [History] Albuterol Sulfate [Ventolin Hfa] 2 puff IH Q4H PRN 11/08/18 [History] Atorvastatin Calcium [Lipitor] 20 mg PO HS 11/08/18 [History] Ferrous Sulfate 325 mg PO BID 11/08/18 [History] Gabapentin [Neurontin] 300 mg PO BID 11/08/18 [History] Omeprazole [PriLOSEC] 20 mg PO BID #60 capsule.dr 11/08/18 [Rx] Sucralfate [Carafate] 1 gm PO TIDAC 11/08/18 [History] dilTIAZem HCl [Diltiazem 24Hr ER] 120 mg PO DAILY 11/08/18 [History] Furosemide [Lasix] 20 mg PO BID #60 tablet 11/22/18 [Rx] Enoxaparin [Lovenox] 80 mg SQ Q12HR 02/25/19 [History] Warfarin [Coumadin] 5 mg PO MOTUTHFRSA 02/25/19 [History] Ascorbic Acid [C-500] 500 mg PO BID 02/26/19 [History] Warfarin [Coumadin] 7.5 mg PO SUWE 02/26/19 [History] Allergy/AdvReac Type Severity Reaction Status Date / Time hydrocodone [From Vicodin] Allergy Itching Verified 11/08/18 09:14 apixaban [From Eliquis] AdvReac See Verified 02/25/19 07:38 Comments azithromycin AdvReac Diarrhea Verified 11/08/18 09:14 codeine AdvReac CHEST Verified 11/08/18 09:14 TIGHTNESS dabigatran etexilate AdvReac See Verified 02/25/19 07:38 [From Pradaxa] Comments All Systems PM: A 10-system review of systems was performed and is negative for pertinent findings except as documented above in the HPI. - Constitutional Vitals: Temp Pulse Resp BP Pulse Ox 98 F 73 18 105/59 100 02/26/19 13:01 02/26/19 15:30 02/26/19 17:53 02/26/19 17:53 02/26/19 15:30 General appearance: Present: A&O X 3, answers questions appropriately Exam: xx Internal Med - H&P Results - Labs CBC & Chem 7: 02/26/19 13:42 02/26/19 13:42 Labs: Short CBC 02/26/19 Range/Units 13:42 WBC 7.4 (4.3-11.1) K/mcL Hgb 11.2 L (11.5-15.4) g/dL Hct 33.1 L (35.3-44.9) % Plt Count 196 (140-400) K/mcL Neutrophils # 5.4 (1.6-8.9) K/mcL BMP 02/26/19 13:42 Sodium 136 Potassium 4.1 Chloride 103 Carbon Dioxide 29 BUN 13 Creatinine 0.59 L Glucose 107 H Calcium 8.9 - Assessment and Plan (1) Pseudoaneurysm Current Visit: Yes Status: Acute (2) Status post cardiac catheterization Current Visit: Yes Status: Acute (3) Aortic stenosis Current Visit: Yes Status: Chronic Qualifiers: Cardiac valve disease etiology: etiology unspecified Qualified Code(s): I35.0 - Nonrheumatic aortic (valve) stenosis (4) Paroxysmal atrial fibrillation Current Visit: No Status: Chronic - Time Spent With Patient Total time spent is greater than 50% in coordination of care (as documented) at patient's floor/unit and/or counseling patient:
[2019-02-26] MEDS: *HR* OxyCODONE Immed Rel 5 MG TABLET PO PRN (20:24)
--- NOTE | 2019-02-26 23:01 | Event Note ---
Date of Encounter: 02/26/19 Time of Encounter: 22:58 Reviewed duplex scan of right groin-if a pseudoaneurysm present it appears to have spontaneously thrombosed. Continue bedrest overnight and repeat duplex scan in AM before any further consideration of intervention(thrombin injection vs compression vs surgical).
[2019-02-27] MEDS: *HR* OxyCODONE Immed Rel 5 MG TABLET PO PRN ×4 (02:45→18:04)
[2019-02-27 07:45] LABS: Basophils % 0.5 %; Eosinophils # 0.1 K/mcL (0.0-0.6); Eosinophils % 1.5 %; Hematocrit 31.5 % (35.3-44.9); Hemoglobin 10.5 g/dL (11.5-15.4); Immature Granulocytes % 0.2 % (0-4); Lymphocytes # 1.4 K/mcL (0.6-4.6); Lymphocytes % 24.7 %; Mean Corpuscular HGB Conc 33.3 g/dL (31.6-35.5); Mean Corpuscular Hemoglobin 31.8 pg (28.0-33.3); Mean Corpuscular Volume 95.5 fL (83.0-100.0); Mean Platelet Volume 8.5 fL (9.4-12.4); Monocytes # 0.7 K/mcL (0.0-1.3); Monocytes % 11.2 %; Neutrophils # 3.6 K/mcL (1.6-8.9); Platelet Count 160 K/mcL (140-400); Red Cell Distribution Width 14.9 % (11.5-14.5); Segmented Neutrophils % 61.9 %
[2019-02-27 08:02] LABS: INR 1.1; Prothrombin Time 12.6 Seconds (9.4-12.1)
[2019-02-27 08:06] LABS: BUN/Creatinine Ratio 19 (6-26); Blood Urea Nitrogen 11 mg/dL (8-23); Calcium 8.9 mg/dL (8.6-10.3); Carbon Dioxide 30 mEq/L (23-29); Chloride 103 mEq/L (98-107); Glucose 94 mg/dL (70-105); Osmolality,Calculated 281 (280-300); Potassium 3.9 mEq/L (3.5-5.1); Sodium 136 mEq/L (136-145); eGFR For Non-African Americans > 60 (> 60)
[2019-02-27] MEDS: Diltiazem CD (24hr) 120 MG CAPSULE PO SCH (08:21)
[2019-02-27] MEDS: Furosemide 20 MG TABLET PO SCH ×2 (08:22→18:04)
[2019-02-27] MEDS: Gabapentin 300 MG CAPSULE PO SCH ×2 (08:22→22:05)
[2019-02-27] MEDS: Loratadine 10 MG TABLET PO SCH (08:22)
[2019-02-27] MEDS: carBAMazepine 200 MG TABLET PO SCH (08:22)
[2019-02-27] MEDS ORDERED: Artificial Tears SOLN 15 ML BOTTLE RIGHT EYE PRN (09:56)
--- NOTE | 2019-02-27 10:03 | Internal Med Progress Note ---
Hospitalist Progress Note - Encounter Date of Encounter: 02/27/19 Time of Encounter: 09:59 - Subjective Interval History: Ms Greene is currently in observation for pseudoaneurysm of left leg. She remains moderate to high risk due to potential for worsening clinical status. Ms Greene is resting in bed at this time. She is feeling hungry. No fever or chills. No CP or SOB at this time. Pain controlled. - Exam Vitals: Temp Pulse Resp BP Pulse Ox 97.7 F 81 14 102/51 92 02/27/19 06:59 02/27/19 06:59 02/27/19 07:43 02/27/19 06:59 02/27/19 07:43 Exam: General: Alert and oriented. Comfortable at this time. Lying flat in bed. Skin: Normal color, no rash, no lesions. H: Normocephalic. EENT: EOMI, Mucus membranes moist. Cardiovascular: Normal S1 & S2, Systolic murmur heard. Pulse regular. Lungs: Normal breath sounds, no wheezes or crackles. Abdomen: Soft, non-tender, Normal bowel sounds. Extremities: No deformity, no edema or tenderness, Neurological: Normal cognition and motor skills. Pulses: radial pulses normal +2. Rest of the physical exam is non contributory - Assessment and Plan (1) Pseudoaneurysm of right femoral artery Current Visit: Yes Status: Acute Assessment and Plan: Pt is s/p cardiac catheterization. She has pseudoaneurysm on vascular study. To have treatment by Dr Burnett today. (2) Paroxysmal atrial fibrillation Current Visit: No Status: Chronic Assessment and Plan: Pt with hx of paroxysmal a fib. No issues at this time. (3) Aortic stenosis Current Visit: Yes Status: Chronic Assessment and Plan: Plan for TAVR in the future. (4) Status post cardiac catheterization Current Visit: Yes Status: Acute (5) Hypertension Current Visit: No Status: Chronic Assessment and Plan: Chronic issue. (6) CHF (congestive heart failure) Current Visit: Yes Status: Chronic Assessment and Plan: Not in exacerbation at this time. (7) CAD (coronary artery disease) Current Visit: No Status: Chronic Assessment and Plan: Chronic issue - Time Spent with Patient Total time spent is greater than 50% in coordination of care (as documented) at patient's floor/unit and/or counseling patient: Internal Medicine: Result - Labs CBC & Chem 7: 02/27/19 07:33 02/27/19 07:33 Labs: Short CBC 02/26/19 02/27/19 Range/Units 13:42 07:33 WBC 7.4 5.8 (4.3-11.1) K/mcL Hgb 11.2 L 10.5 L (11.5-15.4) g/dL Hct 33.1 L 31.5 L (35.3-44.9) % Plt Count 196 160 (140-400) K/mcL Neutrophils # 5.4 3.6 (1.6-8.9) K/mcL BMP 02/26/19 02/27/19 13:42 07:33 Sodium 136 136 Potassium 4.1 3.9 Chloride 103 103 Carbon Dioxide 29 30 H BUN 13 11 Creatinine 0.59 L 0.58 L Glucose 107 H 94 Calcium 8.9 8.9 - ABG Interpretation ABG results: PT/INR, D-dimer PT 12.6 Seconds (9.4-12.1) H 02/27/19 07:33 Consult Discharge Plan - Plan Referrals: Pro Glover MD [Primary Care Provider] - (3) Aortic stenosis Qualifiers: Cardiac valve disease etiology: etiology unspecified Qualified Code(s): I35.0 - Nonrheumatic aortic (valve) stenosis (5) Hypertension Qualifiers: Hypertension type: essential hypertension Qualified Code(s): I10 - Essential (primary) hypertension (6) CHF (congestive heart failure) Qualifiers: Heart failure type: diastolic Heart failure chronicity: chronic Qualified Code(s): I50.32 - Chronic diastolic (congestive) heart failure (7) CAD (coronary artery disease) Qualifiers: Coronary Disease-Associated Artery/Lesion type: [place] artery [place] vs. [place] spl[place] heart: [place] heart Associated angina: without angina Qualified Code(s): I25.10 - Atherosclerotic heart disease of [place] coronary artery without angina pectoris
[2019-02-27] MEDS ORDERED: Lidocaine 1% 20 ML MDV ID ONE (10:27)
[2019-02-27] MEDS: Sucralfate 1 GM TABLET PO SCH ×2 (12:23→18:04)
--- NOTE | 2019-02-27 14:14 | Vascular/Endovasc Consult Note ---
Date of Encounter: 02/27/19 Time of Encounter: 11:30 Assessment and Plan (1) Aortic stenosis Current Visit: Yes Status: Chronic Patient has known aortic stenosis. She is being prepared for potential treatment for the aortic stenosis in the near future. Qualifiers: Cardiac valve disease etiology: etiology unspecified Qualified Code(s): I35.0 - Nonrheumatic aortic (valve) stenosis (2) Leg pain Current Visit: Yes Status: Acute Patient has significant right lower extremity pain beginning yesterday following cardiac catheterization on Thursday. Patient has a hematoma involving the groin and medial thigh area. Patient also has a pseudoaneurysm clearly documented on the repeat duplex scan performed earlier this morning. Qualifiers: Laterality: right Qualified Code(s): M79.604 - Pain in right leg (3) Status post cardiac catheterization Current Visit: Yes Status: Acute Patient has puncture site hematoma and femoral pseudoaneurysm formation. (4) Pseudoaneurysm Current Visit: Yes Status: Acute Right common femoral artery pseudoaneurysm is clearly documented on repeat duplex scan performed this morning. Due to her overall condition and associated medical problems will proceed with ultrasound-guided thrombin injection today. - History of Present Illness Consult date: 02/27/19 Consult reason: Right femoral swelling and pain rule out pseudoaneurysm Chief complaint: Right thigh and groin swelling and pain History of present illness: Ms. Greene is a 78 year old female With a history of aortic stenosis. The patient had a cardiac catheterization performed via a right femoral approach on Thursday, February 25. A minx closure system was used. The patient presented to the emergency room yesterday with pain and swelling in the right thigh and groin. A duplex scan was performed which I have personally reviewed and demonstrated indeterminate results for a pseudoaneurysm being present. The patient was admitted for further care and a repeat duplex scan for this morning. Patient has a history of significant cardiac disease. She is being considered for a TAVR at [facility] in the near future. She has had 2 previous cardiac catheterizations via the right groin. The patient states that she has significant pain in the right groin and right thigh area. The duplex scans have been uncomfortable for the patient. She also has noted significant discoloration. The patient had been on long-term Coumadin therapy. This had been held and she had been placed on Lovenox transition for the recent cardiac catheterization. The patient had taken her Coumadin yesterday morning prior to presenting to the emergency room yesterday afternoon. The patient is not taking any anticoagulation since that time. The patient has significant spine disease and is on chronic narcotic therapy for controlling her chronic pain. Past Med Surg Social Fam HX - Past Medical History Medical history: COPD, coronary artery disease, GI bleed, hyperlipidemia, hypertension, myocardial infarction, seizures, syncope, valvular heart disease, other Additional medical history: osteoarthritis - angina Psychiatric history: anxiety, depression - Past Surgical History Surgical History: angioplasty/stent, appendectomy, cholecystectomy, coronary bypass (CABG), hysterectomy, pacemaker/AICD Additional surgical history: heart cath yesterday - Social History Smoking Status: Current every day smoker Smokeless Tobacco Status: No Alcohol use: none Drug use: none - Family History Mother Living Status: Hx Family Cardiac Disorders: Yes Hx Family Respiratory Disorders: No Hx Family Cancer: No Hx Family GI Disorders: No Hx Family Endocrine Disorder: No Hx Family Neuromuscular Disorders: No Hx Family Neurologic Disorders: No Hx Family HEENT Disorders: No Hx Family Autoimmune Disorders: No Sister Living Status: Hx Family Cardiac Disorders: Yes (heart diease) Hx Family Respiratory Disorders: No Hx Family Cancer: No Hx Family GI Disorders: No Hx Family Endocrine Disorder: Yes (DM) Hx Family Neuromuscular Disorders: No Hx Family Neurologic Disorders: No Hx Family HEENT Disorders: No Hx Family Autoimmune Disorders: No Daughter Living Status: Hx Family Cardiac Disorders: No Hx Family Respiratory Disorders: No Hx Family Cancer: Yes (breast cancer) Hx Family GI Disorders: No Hx Family Endocrine Disorder: No Hx Family Neuromuscular Disorders: No Hx Family Neurologic Disorders: No Hx Family HEENT Disorders: No Hx Family Autoimmune Disorders: No Son Living Status: Still Living Hx Family Cardiac Disorders: Yes (HTN, [place]) Hx Family Respiratory Disorders: No Hx Family Cancer: No Hx Family GI Disorders: No Hx Family Endocrine Disorder: No Hx Family Neuromuscular Disorders: No Hx Family Neurologic Disorders: No Hx Family HEENT Disorders: No Hx Family Autoimmune Disorders: No Medications and Allergies Aspirin Enteric Coated [Aspirin EC] 81 mg PO HS 10/01/16 [History] Potassium Chloride [K-Tab ER] 20 meq PO DAILY 10/01/16 [History] carBAMazepine [Tegretol] 200 mg PO DAILY 10/01/16 [History] Citalopram Hydrobromide [Celexa] 40 mg PO DAILY 12/10/16 [History] Oxycodone HCl/Acetaminophen [Percocet 5-325 mg Tablet] 1 tab PO QID PRN 08/30/18 [History] Baclofen [Lioresal] 10 mg PO HS PRN 10/07/18 [History] Ergocalciferol (VITAMIN D2) [Vitamin D2] 50,000 unit PO TH 10/07/18 [History] Loratadine [Allergy Relief] 10 mg PO DAILY 10/07/18 [History] Albuterol Sulfate [Ventolin Hfa] 2 puff IH Q4H PRN 11/08/18 [History] Atorvastatin Calcium [Lipitor] 20 mg PO HS 11/08/18 [History] Ferrous Sulfate 325 mg PO BID 11/08/18 [History] Gabapentin [Neurontin] 300 mg PO BID 11/08/18 [History] Omeprazole [PriLOSEC] 20 mg PO BID #60 capsule. 11/08/18 [Rx] Sucralfate [Carafate] 1 gm PO TIDAC 11/08/18 [History] dilTIAZem HCl [Diltiazem 24Hr ER] 120 mg PO DAILY 11/08/18 [History] Furosemide [Lasix] 20 mg PO BID #60 tablet 11/22/18 [Rx] Enoxaparin [Lovenox] 80 mg SQ Q12HR 02/25/19 [History] Warfarin [Coumadin] 5 mg PO MOTUTHFRSA 02/25/19 [History] Ascorbic Acid [C-500] 500 mg PO BID 02/26/19 [History] Warfarin [Coumadin] 7.5 mg PO SUWE 02/26/19 [History] Allergy/AdvReac Type Severity Reaction Status Date / Time hydrocodone [From Vicodin] Allergy Itching Verified 11/08/18 09:14 apixaban [From Eliquis] AdvReac See Verified 02/25/19 07:38 Comments azithromycin AdvReac Diarrhea Verified 11/08/18 09:14 codeine AdvReac CHEST Verified 11/08/18 09:14 TIGHTNESS dabigatran etexilate AdvReac See Verified 02/25/19 07:38 [From Pradaxa] Comments All Systems Review: The remainder of the systems were reviewed and are negative Exam Vital Signs, Last 4 Hours Temp Pulse Resp BP Pulse Ox 02/27/19 11:17 97.7 F 81 14 111/54 95 General: Present: Conversant, No Apparent Distress, Well developed, Well nourished HEENT: Present: Atraumatic, Normocephaly Neck: Absent: JVD Neuro: Present: Alert and responsive, No focal deficits noted, Cranial nerves grossly intact Abdomen: Present: Soft, Non-tender Vascular: Present: Pulse, absent (I do not palpate popliteal or pedal pulses.), Other (The patient has marked tenderness over the anterior groin area and along the proximal medial aspect of the right thigh. There is discoloration in the improper umbilical area across the abdomen consistent with the use of Lovenox injections. The patient has discoloration along the left side particularly medially consistent with bleeding and hematoma formation after the recent cardiac catheterization.). Absent: Bruit (No bruit over her right femoral area. Due to tenderness it is difficult to ascertain a pulsatile mass in this region.), Edema Consult Discharge Plan - Plan Referrals: Pro Glover MD [Primary Care Provider] -
--- NOTE | 2019-02-27 14:37 | Operative Note ---
Date of procedure: 02/27/19 Pre-op diagnosis: Right femoral pseudoaneurysm Post-op diagnosis: same Procedure: Ultrasound-guided thrombin injection of right common femoral artery pseudoaneurysm Complications: None Anesthesia: local Surgeon: Juan R Burnett Was there an fire control assistant present: No Estimated blood loss (cc): 0 Specimen: 0 Condition: stable Disposition: floor Procedure in Detail: History Mrs. Greene is a 78-year-old white female with undergone a right femoral puncture for a cardiac catheterization 2 days ago. The patient had a minx device deployed. The following day she presented to the emergency room because of pain and swelling in the right groin and thigh. A duplex scan was performed but was indeterminate in regards to the presence or absence of a similar aneurysm though the patient clearly had a hematoma. The femoral pseudoaneurysm scan was repeated today. This demonstrated clearly that there was indeed a pseudoaneurysm present and a decision was made to proceed with thrombin injection of the pseudoaneurysm. Procedure The procedure was conducted at the patient's bedside on [address] The patient was on telemetry monitoring during this intervention. After informed consent was obtained the right groin was sterilely prepped and draped. A timeout protocol was observed. Using ultrasound guidance the right common femoral artery pseudoaneurysm was clearly identified. One percent lidocaine was then injected over the pseudoaneurysm with a 25-gauge needle. Then using a 3-1/2 inch 22-gauge spinal needle the pseudoaneurysm was punctured. Then thrombin was slowly injected into the pseudoaneurysm. Under ultrasound guidance the pseudoaneurysm thrombosed. There was no color-flow or signs of arterial inflow into the pseudoaneurysm. A total 5 mL's of the thrombin material was used for this injection. With this done the needle was removed. Scanning was then performed to assure there was patency of the associated external iliac and femoral arteries above and below the puncture site. With this done a dry sterile dressing was applied. There were no intraoperative complications. The patient tolerated the procedure well. The patient will remain on [address].
[2019-02-27] MEDS: Aspirin Enteric Coated 81 MG Tablet PO SCH (19:52)
[2019-02-27] MEDS: Baclofen 10 MG TABLET PO PRN (22:05)
[2019-02-28 06:36] LABS: Hematocrit 30.8 % (35.3-44.9); Hemoglobin 10.3 g/dL (11.5-15.4); Mean Corpuscular HGB Conc 33.4 g/dL (31.6-35.5); Mean Corpuscular Hemoglobin 31.5 pg (28.0-33.3); Mean Corpuscular Volume 94.2 fL (83.0-100.0); Mean Platelet Volume 8.6 fL (9.4-12.4); Platelet Count 177 K/mcL (140-400); Red Blood Count 3.27 M/mcL (3.82-4.97); Red Cell Distribution Width 14.8 % (11.5-14.5)
[2019-02-28 06:58] LABS: BUN/Creatinine Ratio 18 (6-26); Blood Urea Nitrogen 10 mg/dL (8-23); Calcium 8.7 mg/dL (8.6-10.3); Carbon Dioxide 28 mEq/L (23-29); Chloride 102 mEq/L (98-107); Glucose 104 mg/dL (70-105); Magnesium 1.9 mg/dL (1.6-2.6); Osmolality,Calculated 283 (280-300); Potassium 3.8 mEq/L (3.5-5.1); Sodium 137 mEq/L (136-145); eGFR For Non-African Americans > 60 (> 60)
[2019-02-28] MEDS: *HR* OxyCODONE Immed Rel 5 MG TABLET PO PRN ×3 (07:11→20:23)
[2019-02-28] MEDS: Loratadine 10 MG TABLET PO SCH (07:45)
[2019-02-28] MEDS: Sucralfate 1 GM TABLET PO SCH ×3 (07:45→18:37)
[2019-02-28] MEDS: carBAMazepine 200 MG TABLET PO SCH (07:45)
[2019-02-28] MEDS: Diltiazem CD (24hr) 120 MG CAPSULE PO SCH (07:45)
[2019-02-28] MEDS: Furosemide 20 MG TABLET PO SCH ×2 (07:46→18:37)
[2019-02-28] MEDS: Gabapentin 300 MG CAPSULE PO SCH ×2 (07:46→20:23)
--- NOTE | 2019-02-28 13:11 | Vascular/[facility] Progress Note ---
Date of Encounter: 02/28/19 Time of Encounter: 13:09 - Assessment and plan (1) Aortic stenosis Current Visit: Yes Status: Chronic Patient has known aortic stenosis. She is being prepared for potential treatment for the aortic stenosis in the near future. Qualifiers: Cardiac valve disease etiology: etiology unspecified Qualified Code(s): I35.0 - Nonrheumatic aortic (valve) stenosis (2) Leg pain Current Visit: Yes Status: Acute Patient has significant right lower extremity pain beginning Thursday following cardiac catheterization on Thursday. Patient has a hematoma involving the groin and medial thigh area. Patient also had a pseudoaneurysm clearly documented on the repeat duplex scan and successfully treated with ultrasound guided thrombin injection yesterday afternoon. Qualifiers: Laterality: right Qualified Code(s): M79.604 - Pain in right leg (3) Status post cardiac catheterization Current Visit: Yes Status: Acute Patient had puncture site hematoma and femoral pseudoaneurysm formation. (4) Pseudoaneurysm Current Visit: Yes Status: Acute Follow-up duplex scan shows successful thrombosis of right femoral pseudoane urysm with thrombin injection. From vascular surgery perspective patient will need to ambulate and if there are no further issues may be discharged home. No follow-up with vascular surgery is necessary at this time. Follow-up with cardiology and other physicians as already arranged. - Subjective Interval history: Patient had a uneventful night. The patient has not yet been out of bed since the thrombin injection yesterday afternoon. Patient has no new complaints. - Physical Examination General: Present: Conversant, No Apparent Distress HEENT: Present: Atraumatic Vascular: Present: Other (Patient has diffuse ecchymosis of the lower abdomen and in the right groin and thigh. Patient has residual tenderness in the right groin area. The thigh is softer today than yesterday.) Results 02/28/19 06:17 02/28/19 06:17 Lab Results, Last 24 hours 02/28/19 02/28/19 06:17 06:17 WBC 6.4 Hgb 10.3 L Hct 30.8 L Plt Count 177 Sodium 137 Potassium 3.8 Chloride 102 Carbon Dioxide 28 BUN 10 Creatinine 0.55 L Glucose 104 Calcium 8.7 Magnesium 1.9 - Imaging / Other Tests Non Invasive Vascular Testing: image reviewed (Successful thrombin injection of right femoral pseudoaneurysm.) Consult Discharge Plan - Plan Referrals: Pro Glover MD [Primary Care Provider] -
--- NOTE | 2019-02-28 14:10 | Internal Med Progress Note ---
<Nick Garcia - Last Filed: 02/28/19 17:55> Hospitalist Progress Note - Encounter Date of Encounter: 02/28/19 - Exam Vitals: Temp Pulse Resp BP Pulse Ox 99.0 F 80 15 117/78 90 02/28/19 15:21 02/28/19 15:21 02/28/19 15:21 02/28/19 15:21 02/28/19 15:21 - Assessment and Plan (1) Paroxysmal atrial fibrillation Current Visit: No Status: Chronic (2) CAD (coronary artery disease) Current Visit: No Status: Chronic (3) Aortic stenosis Current Visit: Yes Status: Chronic (4) Hypertension Current Visit: No Status: Chronic (5) Status post cardiac catheterization Current Visit: Yes Status: Acute (6) Pseudoaneurysm of right femoral artery Current Visit: Yes Status: Acute (7) CHF (congestive heart failure) Current Visit: Yes Status: Chronic - Time Spent with Patient Total time spent is greater than 50% in coordination of care (as documented) at patient's floor/unit and/or counseling patient: Internal Medicine: Result - Labs CBC & Chem 7: 02/28/19 06:17 02/28/19 06:17 Labs: Short CBC 02/28/19 Range/Units 06:17 WBC 6.4 (4.3-11.1) K/mcL Hgb 10.3 L (11.5-15.4) g/dL Hct 30.8 L (35.3-44.9) % Plt Count 177 (140-400) K/mcL BMP 02/28/19 06:17 Sodium 137 Potassium 3.8 Chloride 102 Carbon Dioxide 28 BUN 10 Creatinine 0.55 L Glucose 104 Calcium 8.7 - ABG Interpretation ABG results: PT/INR, D-dimer PT 12.6 Seconds (9.4-12.1) H 02/27/19 07:33 Consult Discharge Plan - Plan Referrals: Pro Glover MD [Primary Care Provider] - - Attending Attestation I examined this patient and my medical decision-making was reviewed with the Resident Physician on 02/28/19. I agree with the documented findings, disposition and treatment plan as described except to the extent set forth below. Ms Greene is currently in observation for pseudoaneurysm of L groin. She remains moderate to high risk due to potential for worsening clinical status. Ms Greene is resting in bed. She tried to walk and had pain. No fever or chills. No abd pain now. Exam Alert Comfortable Mucus membranes dry Heart reg and not tachy. Murmur present Lungs clear now Abd soft and nontender Ecchymosis L groin Moves extremities I/P 1. L groin pseudoaneurysm - s/p thrombin. Has pain at this time. Monitor overnight. 2. CAD s/p CABG 3. Aortic stenosis Further diagnoses and plan as above. <Carlos Obando - Last Filed: 02/28/19 20:47> Hospitalist Progress Note - Encounter Date of Encounter: 02/28/19 Time of Encounter: 08:50 - Subjective Interval History: Mr. Greene is doing well status post thrombin infusion yesterday. She endorses no acute leg pain except when she was ambulated this PM, when she com plained of a sharp non-radiating pain near her left groin. Repeat duplex scan showed successful with thrombosis of right femoral pseudoaneurysm with thrombin injection. Groin and medial thigh looks erythematous but no signs of any ibleeding or discharge. Patient will be following up with cardiology for a potential PCI - Exam Vitals: Temp Pulse Resp BP Pulse Ox 98.3 F 75 19 98/65 94 02/28/19 06:54 02/28/19 06:54 02/28/19 06:54 02/28/19 06:54 02/28/19 06:54 Exam: Gen.: Vitals noted. mild distress. Alert, awake and oriented * 3 to person, place, and time, well developed, sitting on the chair. Pleasant. HEENT: oropharynx clear, Normocephalic, atraumatic, MMM Neck: supple, no JVD, no lymphadenopathy, no carotid bruit. Cardiac: RRR, no murmur, +S1/S2, 3+ BLE edema, PMI non-displaced Pulmonary: CTA bilaterally, no wheezes, rales or rhonchi, equal chest expansion, unlabored breathing Abdomen: soft, non-tender, BS noted, no guarding, non distended. No organomegaly, no pulsatile masses, Skin: warm and dry, no visible lesions. Feels warm, clammy, no rashes, no lesions, no erythema MSK: erythema in the groin and medial thigh area, non-radiating groin pain with ambulation, no joint swelling noted, gait not assessed while in bed. Non tender calf or clubbing, 2+ pedal edema Neuro: A&O, moves all extremities, no focal deficits, sensation intact Psych: Appropriate mood and behavior, normal speech. - Assessment and Plan (1) Pseudoaneurysm of right femoral artery Current Visit: Yes Status: Acute Assessment and Plan: -Patient developed right leg pseudo aneurysm s/p cardiac catheterization -She is status post a thrombin injection by Dr. Burnett on 02/27/2019. She emi erated the procedure well -Repeat Duplex scan showed successful treatment of pseudoaneurysm -From vascular surgery standpoint patient will need to be ambulated, and if there are no further issues she may be discharged home and no follow-up is needed - (2) Paroxysmal atrial fibrillation Current Visit: No Status: Chronic Assessment and Plan: -Patient has a history of paroxysmal atrial fibrillation. -Holding her coumadin because patient underwent thrombin infusion yesterday. -will resume coumadin tomorrow (3) CAD (coronary artery disease) Current Visit: No Status: Chronic Assessment and Plan: -Patient has a history of coronary artery disease. -Her most recent cardiac catheterization showed severe three-vessel coronary artery disease. Has a history of CABG surgery in the past, has 2 out of 3 pat ent past grafts. -Patient will probably get PCI before she gets her TAVR scheduled. -On the ASA, statin. - Resume anti-coagulation tomorrow (4) Aortic stenosis Current Visit: Yes Status: Chronic Assessment and Plan: -Patient's last echocardiogram showed aortic stenosis with estimated aortic valve area of approximately 0.7 cm. -She was in the hospital for her cardiac catheterization prior to her surgery which showed evidence of three-vessel coronary artery disease -She will probably get a PCI of the RCA lesion before she goes for her TAVR (5) Hypertension Current Visit: No Status: Chronic Assessment and Plan: -Patient has a history of hypertension -Patient's blood pressure has been between 90-100 systolic in the hospital admission and has not required any antihypertensives -We will resume oral antihypertensives as needed. (6) Status post cardiac catheterization Current Visit: Yes Status: Acute Assessment and Plan: -Patient recently had a cardiac catheterization which showed severe three-vessel coronary artery disease. She was also status post CABG surgery in the past with 2 out of 3 patent bypass grafts. He also has severe diffuse disease of the RCA. -Patient will proceed with PCI of the RCA if she is a candidate for TAVR. -Recommended aggressive risk factor modification (7) CHF (congestive heart failure) Current Visit: Yes Status: Chronic Assessment and Plan: -Patient has a history of CHF -Her last echocardiogram from 11/20/2018 showed an LVEF of 50%, severely calcified aortic valve leaflets with stenosis -Patient does not appear to be an exacerbation of this time -no evidence of pedal edema or shortness of breath. -She continues to be on her home dose of furosemide. - Time Spent with Patient Total time spent is greater than 50% in coordination of care (as documented) at patient's floor/unit and/or counseling patient: Internal Medicine: Result - Labs CBC & Chem 7: 02/28/19 06:17 02/28/19 06:17 Labs: Short CBC 02/28/19 Range/Units 06:17 WBC 6.4 (4.3-11.1) K/mcL Hgb 10.3 L (11.5-15.4) g/dL Hct 30.8 L (35.3-44.9) % Plt Count 177 (140-400) K/mcL BMP 02/28/19 06:17 Sodium 137 Potassium 3.8 Chloride 102 Carbon Dioxide 28 BUN 10 Creatinine 0.55 L Glucose 104 Calcium 8.7 - ABG Interpretation ABG results: PT/INR, D-dimer PT 12.6 Seconds (9.4-12.1) H 02/27/19 07:33 <Nick Garcia - Last Filed: 02/28/19 17:55> (2) CAD (coronary artery disease) Qualifiers: Coronary Disease-Associated Artery/Lesion type: [place] artery [place] vs. transplanted heart: [place] heart Associated angina: without angina Qualified Code(s): I25.10 - Atherosclerotic heart disease of [place] coronary artery without angina pectoris (3) Aortic stenosis Qualifiers: Cardiac valve disease etiology: etiology unspecified Qualified Code(s): I35.0 - Nonrheumatic aortic (valve) stenosis (4) Hypertension Qualifiers: Hypertension type: essential hypertension Qualified Code(s): I10 - Essential (primary) hypertension (7) CHF (congestive heart failure) Qualifiers: Heart failure type: diastolic Heart failure chronicity: chronic Qualified Code(s): I50.32 - Chronic diastolic (congestive) heart failure <Carlos Obando - Last Filed: 02/28/19 20:47> (3) CAD (coronary artery disease) Qualifiers: Coronary Disease-Associated Artery/Lesion type: [place] artery [place] vs. transplanted heart: [place] heart Associated angina: without angina Qualified Code(s): I25.10 - Atherosclerotic heart disease of [place] coronary artery without angina pectoris (4) Aortic stenosis Qualifiers: Cardiac valve disease etiology: etiology unspecified Qualified Code(s): I35.0 - Nonrheumatic aortic (valve) stenosis (5) Hypertension Qualifiers: Hypertension type: essential hypertension Qualified Code(s): I10 - Essential (primary) hypertension (7) CHF (congestive heart failure) Qualifiers: Heart failure type: diastolic Heart failure chronicity: chronic Qualified Code(s): I50.32 - Chronic diastolic (congestive) heart failure
[2019-02-28] MEDS: Aspirin Enteric Coated 81 MG Tablet PO SCH (20:23)
[2019-03-01 06:26] LABS: Basophils % 0.4 %; Eosinophils # 0.1 K/mcL (0.0-0.6); Eosinophils % 0.9 %; Hemoglobin 9.9 g/dL (11.5-15.4); Immature Granulocytes % 0.2 % (0-4); Lymphocytes # 1.7 K/mcL (0.6-4.6); Lymphocytes % 20.8 %; Mean Corpuscular HGB Conc 34.1 g/dL (31.6-35.5); Mean Corpuscular Hemoglobin 31.8 pg (28.0-33.3); Mean Corpuscular Volume 93.2 fL (83.0-100.0); Monocytes # 1.1 K/mcL (0.0-1.3); Monocytes % 13.5 %; Neutrophils # 5.2 K/mcL (1.6-8.9); Platelet Count 190 K/mcL (140-400); Red Blood Count 3.11 M/mcL (3.82-4.97); Red Cell Distribution Width 14.7 % (11.5-14.5); Segmented Neutrophils % 64.2 %
[2019-03-01] MEDS: Gabapentin 300 MG CAPSULE PO SCH ×2 (08:25→20:39)
[2019-03-01] MEDS: Sucralfate 1 GM TABLET PO SCH ×3 (08:25→17:20)
[2019-03-01] MEDS: Diltiazem CD (24hr) 120 MG CAPSULE PO SCH (08:25)
[2019-03-01] MEDS: Furosemide 20 MG TABLET PO SCH ×2 (08:25→17:21)
[2019-03-01] MEDS: carBAMazepine 200 MG TABLET PO SCH (08:26)
[2019-03-01] MEDS: *HR* OxyCODONE Immed Rel 5 MG TABLET PO PRN ×3 (08:26→19:12)
[2019-03-01] MEDS: Loratadine 10 MG TABLET PO SCH (08:41)
--- NOTE | 2019-03-01 16:41 | Internal Med Progress Note ---
<Nick Garcia - Last Filed: 03/01/19 17:20> Hospitalist Progress Note - Encounter Date of Encounter: 03/01/19 - Exam Vitals: Temp Pulse Resp BP Pulse Ox 98.6 F 87 19 104/69 95 03/01/19 16:56 03/01/19 16:56 03/01/19 16:56 03/01/19 16:56 03/01/19 16:56 - Assessment and Plan (1) Paroxysmal atrial fibrillation Current Visit: No Status: Chronic (2) CAD (coronary artery disease) Current Visit: No Status: Chronic (3) Aortic stenosis Current Visit: Yes Status: Chronic (4) Hypertension Current Visit: No Status: Chronic (5) Status post cardiac catheterization Current Visit: Yes Status: Acute (6) Pseudoaneurysm of right femoral artery Current Visit: Yes Status: Acute (7) CHF (congestive heart failure) Current Visit: Yes Status: Chronic - Time Spent with Patient Total time spent is greater than 50% in coordination of care (as documented) at patient's floor/unit and/or counseling patient: Internal Medicine: Result - Labs CBC & Chem 7: 03/01/19 05:57 02/28/19 06:17 Labs: Short CBC 03/01/19 Range/Units 05:57 WBC 8.1 (4.3-11.1) K/mcL Hgb 9.9 L (11.5-15.4) g/dL Hct 29.0 L (35.3-44.9) % Plt Count 190 (140-400) K/mcL Neutrophils # 5.2 (1.6-8.9) K/mcL - ABG Interpretation ABG results: PT/INR, D-dimer PT 12.6 Seconds (9.4-12.1) H 02/27/19 07:33 Consult Discharge Plan - Plan Referrals: Pro Glover MD [Primary Care Provider] - - Attending Attestation I examined this patient and my medical decision-making was reviewed with the Resident Physician on 03/01/19. I agree with the documented findings, disposition and treatment plan as described except to the extent set forth below. Ms Greene is currently in observation for pseudoaneurysm of R femoral artery. She remains moderate to high risk. Ms Greene has pain in her leg. No fever or chills. She is standing and has increased pain. Awaiting PT and OT evals. Exam alert Pain when moving leg Mucus membranes dry Heart reg No wheeze at this time. Abd soft R groin with hematoma. No edema I/P 1. Pseudoaneurysm s/p thrombin treatment - stabl 2. Pain - PRN meds 3. PT/OT evals for d/c planning' Further diagnoses and plan as above. <Carlos Obando - Last Filed: 03/01/19 20:37> Hospitalist Progress Note - Encounter Date of Encounter: 03/01/19 Time of Encounter: 09:10 - Subjective Interval History: Ms. Greene is doing well status post thrombin infusion . She endorses no acute leg pain except when she was ambulated this PM, she complained of a sharp non-radiating pain near her left groin. Repeat duplex scan from yesterday showed successful with thrombosis of right femoral pseudoaneurysm with thrombin injection. Groin and medial thigh looks erythematous but no signs of any ibleeding or discharge. Patient will be following up with cardiology for a potential PCI once that she gets discharged. Patient is currently awaiting PT and OT evaluation for discharge planning. - Exam Vitals: Temp Pulse Resp BP Pulse Ox 98.9 F 76 16 104/66 94 03/01/19 11:21 03/01/19 11:21 03/01/19 11:21 03/01/19 11:21 03/01/19 11:21 Exam: Gen.: Vitals noted. mild distress. Alert, awake and oriented * 3 to person, place, and time, well developed, sitting on the chair. Pleasant. HEENT: oropharynx clear, Normocephalic, atraumatic, MMM Neck: supple, no JVD, no lymphadenopathy, no carotid bruit. Cardiac: RRR, no murmur, +S1/S2, 3+ BLE edema, PMI non-displaced Pulmonary: CTA bilaterally, no wheezes, rales or rhonchi, equal chest expansion, unlabored breathing Abdomen: soft, non-tender, BS noted, no guarding, non distended. No organomegaly, no pulsatile masses, Skin: warm and dry, no visible lesions. Feels warm, clammy, no rashes, no lesions, no erythema MSK: erythema in the groin and medial thigh area, non-radiating groin pain with ambulation, no joint swelling noted, gait not assessed while in bed. Non tender calf or clubbing, 2+ pedal edema Neuro: A&O, moves all extremities, no focal deficits, sensation intact Psych: Appropriate mood and behavior, normal speech. - Assessment and Plan (1) Pseudoaneurysm of right femoral artery Current Visit: Yes Status: Acute Assessment and Plan: -Patient developed right leg pseudo aneurysm s/p cardiac catheterization -She is status post a thrombin injection by Dr. Burnett on 02/27/2019. She tolerated the procedure well -Repeat Duplex scan showed successful treatment of pseudoaneurysm -From vascular surgery standpoint patient will need to be ambulated, and if there are no further issues she may be discharged home and no follow-up is needed - (2) Paroxysmal atrial fibrillation Current Visit: No Status: Chronic Assessment and Plan: -Patient has a history of paroxysmal atrial fibrillation. -Holding her coumadin because patient underwent thrombin infusion yesterday. -will resume coumadin tomorrow (3) CAD (coronary artery disease) Current Visit: No Status: Chronic Assessment and Plan: -Patient has a history of coronary artery disease. -Her most recent cardiac catheterization showed severe three-vessel coronary artery disease. Has a history of CABG surgery in the past, has 2 out of 3 patent past grafts. -Patient will probably get PCI before she gets her TAVR scheduled. -On the ASA, statin. - Resume anti-coagulation tomorrow (4) Aortic stenosis Current Visit: Yes Status: Chronic Assessment and Plan: -Patient's last echocardiogram showed aortic stenosis with estimated aortic valve area of approximately 0.7 cm. -She was in the hospital for her cardiac catheterization prior to her surgery w hich showed evidence of three-vessel coronary artery disease -She will probably get a PCI of the RCA lesion before she goes for her TAVR (5) Hypertension Current Visit: No Status: Chronic Assessment and Plan: -Patient has a history of hypertension -Patient's blood pressure has been between 90-100 systolic in the hospital admission and has not required any antihypertensives -We will resume oral antihypertensives as needed. (6) Status post cardiac catheterization Current Visit: Yes Status: Acute Assessment and Plan: -Patient recently had a cardiac catheterization which showed severe three-vessel coronary artery disease. She was also status post CABG surgery in the past with 2 out of 3 patent bypass grafts. He also has severe diffuse disease of the RCA. -Patient will proceed with PCI of the RCA if she is a candidate for TAVR. -Recommended aggressive risk factor modification (7) CHF (congestive heart failure) Current Visit: Yes Status: Chronic Assessment and Plan: -Patient has a history of CHF -Her last echocardiogram from 11/20/2018 showed an LVEF of 50%, severely calcified aortic valve leaflets with stenosis -Patient does not appear to be an exacerbation of this time -no evidence of pedal edema or shortness of breath. -She continues to be on her home dose of furosemide. - Time Spent with Patient Total time spent is greater than 50% in coordination of care (as documented) at patient's floor/unit and/or counseling patient: Internal Medicine: Result - Labs CBC & Chem 7: 03/01/19 05:57 02/28/19 06:17 Labs: Short CBC 03/01/19 Range/Units 05:57 WBC 8.1 (4.3-11.1) K/mcL Hgb 9.9 L (11.5-15.4) g/dL Hct 29.0 L (35.3-44.9) % Plt Count 190 (140-400) K/mcL Neutrophils # 5.2 (1.6-8.9) K/mcL - ABG Interpretation ABG results: PT/INR, D-dimer PT 12.6 Seconds (9.4-12.1) H 02/27/19 07:33 <Nick Garcia - Last Filed: 03/01/19 17:20> (2) CAD (coronary artery disease) Qualifiers: Coronary Disease-Associated Artery/Lesion type: [place] artery [place] vs. transplanted heart: [place] heart Associated angina: without angina Qualified Code(s): I25.10 - Atherosclerotic heart disease of [place] coronary artery without angina pectoris (3) Aortic stenosis Qualifiers: Cardiac valve disease etiology: etiology unspecified Qualified Code(s): I35.0 - Nonrheumatic aortic (valve) stenosis (4) Hypertension Qualifiers: Hypertension type: essential hypertension Qualified Code(s): I10 - Essential (primary) hypertension (7) CHF (congestive heart failure) Qualifiers: Heart failure type: diastolic Heart failure chronicity: chronic Qualified Code(s): I50.32 - Chronic diastolic (congestive) heart failure <Carlos Obando - Last Filed: 03/01/19 20:37> (3) CAD (coronary artery disease) Qualifiers: Coronary Disease-Associated Artery/Lesion type: [place] artery [place] vs. transplanted heart: [place] heart Associated angina: without angina Qualified Code(s): I25.10 - Atherosclerotic heart disease of [place] coronary artery without angina pectoris (4) Aortic stenosis Qualifiers: Cardiac valve disease etiology: etiology unspecified Qualified Code(s): I35.0 - Nonrheumatic aortic (valve) stenosis (5) Hypertension Qualifiers: Hypertension type: essential hypertension Qualified Code(s): I10 - Essential (primary) hypertension (7) CHF (congestive heart failure) Qualifiers: Heart failure type: diastolic Heart failure chronicity: chronic Qualified Code(s): I50.32 - Chronic diastolic (congestive) heart failure
[2019-03-01] MEDS: Baclofen 10 MG TABLET PO PRN (20:38)
[2019-03-01] MEDS: Aspirin Enteric Coated 81 MG Tablet PO SCH (20:38)
[2019-03-02] MEDS: *HR* OxyCODONE Immed Rel 5 MG TABLET PO PRN (05:17)
--- NOTE | 2019-03-02 06:17 | Electrocardiograph Report ---
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
[2019-03-02] MEDS: Sucralfate 1 GM TABLET PO SCH ×3 (07:51→18:49)
[2019-03-02 08:23] LABS: Basophils % 0.4 %; Eosinophils # 0.1 K/mcL (0.0-0.6); Eosinophils % 1.5 %; Hematocrit 29.6 % (35.3-44.9); Hemoglobin 9.6 g/dL (11.5-15.4); Immature Granulocytes % 0.4 % (0-4); Lymphocytes # 1.3 K/mcL (0.6-4.6); Lymphocytes % 17.1 %; Mean Corpuscular HGB Conc 32.4 g/dL (31.6-35.5); Mean Corpuscular Hemoglobin 31.5 pg (28.0-33.3); Mean Platelet Volume 8.8 fL (9.4-12.4); Monocytes % 13.9 %; Neutrophils # 4.9 K/mcL (1.6-8.9); Platelet Count 231 K/mcL (140-400); Red Blood Count 3.05 M/mcL (3.82-4.97); Red Cell Distribution Width 14.7 % (11.5-14.5); Segmented Neutrophils % 66.7 %
[2019-03-02] MEDS: carBAMazepine 200 MG TABLET PO SCH (08:53)
[2019-03-02] MEDS: Diltiazem CD (24hr) 120 MG CAPSULE PO SCH (08:53)
[2019-03-02] MEDS: Gabapentin 300 MG CAPSULE PO SCH (08:53)
[2019-03-02] MEDS: Loratadine 10 MG TABLET PO SCH (08:53)
[2019-03-02] MEDS: Furosemide 20 MG TABLET PO SCH ×2 (08:53→18:49)
--- NOTE | 2019-03-02 15:12 | Discharge Summary ---
<Carlos Obando - Last Filed: 03/02/19 16:12> - NOTES TO OUTPATIENT PROVIDER Notes to Outpatient Provider: - Patient needs to follow-up with administrative assistant office manager for potential PCI prior to the TAVR because of newly diagnosed three-vessel coronary artery disease. -Patient needs to continue following with Coumadin clinic for INR monitoring. Date of Encounter: 03/02/19 Time of Encounter: 10:00 - Discharge Diagnosis (1) Pseudoaneurysm of right femoral artery Priority: Primary Status: Acute (2) Paroxysmal atrial fibrillation Priority: Secondary Status: Chronic (3) CAD (coronary artery disease) Priority: Secondary Status: Chronic Qualifiers: Coronary Disease-Associated Artery/Lesion type: [place] artery [place] vs. transplanted heart: [place] heart Associated angina: without angina Qualified Code(s): I25.10 - Atherosclerotic heart disease of [place] coronary artery without angina pectoris (4) Aortic stenosis Priority: Secondary Status: Chronic Qualifiers: Cardiac valve disease etiology: etiology unspecified Qualified Code(s): I35.0 - Nonrheumatic aortic (valve) stenosis (5) Hypertension Priority: Secondary Status: Chronic Qualifiers: Hypertension type: essential hypertension Qualified Code(s): I10 - Essential (primary) hypertension (6) Status post cardiac catheterization Priority: Secondary Status: Acute (7) CHF (congestive heart failure) Priority: Secondary Status: Chronic Qualifiers: Heart failure type: diastolic Heart failure chronicity: chronic Qualified Code(s): I50.32 - Chronic diastolic (congestive) heart failure Hospital course: Ms. Greene is a 78 year old female with past medical history of paroxysmal atrial fibrillation, COPD, hypertension, hyperlipidemia, seizure, GERD, depression with anxiety. Patient underwent cardiac catheterization prior to this admission, was sent home and developed right leg pain which was shooting and stabbing in nature. Patient came back to the ED and was found to have a pseudoaneurysm of the right femoral artery. Vascular surgery was consulted. Patient underwent thrombin injection on day 2 of her hospital stay at the bedside. Patient tolerated the procedure very well, although she did have some leg pain when she ambulated from bed to chair that evening, which eventually got better with every progressing day. Her repeat duplex scan showed a successful thrombosis of right femoral pseudoaneurysm. On day 4 of her hospital stay patient was deemed hemodynamically stable to be discharged to SNF. Spoke to Dr. Burnett over the phone and he recommended that patient is stable to go back to the SNF and does not need to follow-up with vascular surgery. Patient has been recommended to follow-up with cardiology as an outpatient for PCI for her newly diagnosed three-vessel disease before she can get her TAVR. - Time Spent with Patient Total time spent providing and/or coordinating discharge services: - Discharge Medications Prescriptions: Continue RX: Potassium Chloride [K-Tab ER] 20 meq PO DAILY RX: carBAMazepine [Tegretol] 200 mg PO DAILY RX: Aspirin Enteric Coated [Aspirin EC] 81 mg PO HS RX: Citalopram Hydrobromide [Celexa] 40 mg PO DAILY RX: Oxycodone HCl/Acetaminophen [Percocet 5-325 mg Tablet] 1 tab PO QID PRN PRN Reason: Pain RX: Ergocalciferol (VITAMIN D2) [Vitamin D2] 50,000 unit PO TH RX: Loratadine [Allergy Relief] 10 mg PO DAILY RX: Baclofen [Lioresal] 10 mg PO HS PRN PRN Reason: muscle spasms RX: Atorvastatin Calcium [Lipitor] 20 mg PO HS RX: Gabapentin [Neurontin] 300 mg PO BID RX: Ferrous Sulfate 325 mg PO BID RX: Sucralfate [Carafate] 1 gm PO TIDAC RX: Albuterol Sulfate [Ventolin Hfa] 2 puff IH Q4H PRN PRN Reason: Dyspnea RX: Omeprazole [PriLOSEC] 20 mg PO BID #60 capsule. RX: dilTIAZem HCl [Diltiazem 24Hr ER] 120 mg PO DAILY RX: Furosemide [Lasix] 20 mg PO BID #60 tablet RX: Warfarin [Coumadin] 5 mg PO MOTUTHFRSA RX: Ascorbic Acid [C-500] 500 mg PO BID Discontinued RX: Enoxaparin [Lovenox] 80 mg SQ Q12HR No Action Warfarin [Coumadin] 7.5 mg PO SUWE Home Medications: RX: Aspirin Enteric Coated [Aspirin EC] 81 mg PO HS 10/01/16 [History] RX: Potassium Chloride [K-Tab ER] 20 meq PO DAILY 10/01/16 [History] RX: carBAMazepine [Tegretol] 200 mg PO DAILY 10/01/16 [History] RX: Citalopram Hydrobromide [Celexa] 40 mg PO DAILY 12/10/16 [History] RX: Oxycodone HCl/Acetaminophen [Percocet 5-325 mg Tablet] 1 tab PO QID PRN 08/30/18 [History] RX: Baclofen [Lioresal] 10 mg PO HS PRN 10/07/18 [History] RX: Ergocalciferol (VITAMIN D2) [Vitamin D2] 50,000 unit PO TH 10/07/18 [History] RX: Loratadine [Allergy Relief] 10 mg PO DAILY 10/07/18 [History] RX: Albuterol Sulfate [Ventolin Hfa] 2 puff IH Q4H PRN 11/08/18 [History] RX: Atorvastatin Calcium [Lipitor] 20 mg PO HS 11/08/18 [History] RX: Ferrous Sulfate 325 mg PO BID 11/08/18 [History] RX: Gabapentin [Neurontin] 300 mg PO BID 11/08/18 [History] RX: Omeprazole [PriLOSEC] 20 mg PO BID #60 capsule. 11/08/18 [Rx] RX: Sucralfate [Carafate] 1 gm PO TIDAC 11/08/18 [History] RX: dilTIAZem HCl [Diltiazem 24Hr ER] 120 mg PO DAILY 11/08/18 [History] RX: Furosemide [Lasix] 20 mg PO BID #60 tablet 11/22/18 [Rx] RX: Warfarin [Coumadin] 5 mg PO MOTUTHFRSA 02/25/19 [History] RX: Ascorbic Acid [C-500] 500 mg PO BID 02/26/19 [History] Warfarin [Coumadin] 7.5 mg PO SUWE 02/26/19 [History] Allergies/Adverse Reactions: Allergy/AdvReac Type Severity Reaction Status Date / Time hydrocodone [From Vicodin] Allergy Itching Verified 11/08/18 09:14 apixaban [From Eliquis] AdvReac See Verified 02/25/19 07:38 Comments azithromycin AdvReac Diarrhea Verified 11/08/18 09:14 codeine AdvReac CHEST Verified 11/08/18 09:14 TIGHTNESS dabigatran etexilate AdvReac See Verified 02/25/19 07:38 [From Pradaxa] Comments Date of admission: 03/02/19 13:16 Primary care physician: Pro Glover MD Consults: 02/26/19 15:31 Consult to Vascular Surgery [CONS] Stat Consulting Provider: Vascular Surgery [place] Reason for Consult: pseudoaneurysm Call Completed: Yes 02/28/19 16:33 Consult to Physical Therapy [CONS] Routine Comment: Evaluate, develop and implement POC Reason for Consult: Left ef pain Does patient have active BEDREST order?: No Is patient medically & hemodynamically stable?: Yes 02/28/19 16:34 Consult to Occupational Therapy [CONS] Routine Comment: Evaluate, develop and implement POC Reason for Consult: left leg pain Does patient have active BEDREST order?: No Is patient medically & hemodynamically stable?: Yes 03/01/19 17:42 Consult to Associate Artistic Director [CONS] Routine Reason for SW Consult: Discharge planning - SNF. - Constitutional Vitals: Temp Pulse Resp BP Pulse Ox 98.2 F 74 16 102/76 95 03/02/19 11:27 03/02/19 11:27 03/02/19 11:27 03/02/19 11:27 03/02/19 11:27 General appearance: Present: A&O X 3, answers questions appropriately Exam: Gen.: Vitals noted. mild distress. Alert, awake and oriented * [address], [address], and time, well developed, sitting on the chair. Pleasant. HEENT: oropharynx clear, Normocephalic, atraumatic, MMM Neck: supple, no JVD, no lymphadenopathy, no carotid bruit. Cardiac: RRR, no murmur, +S1/S2, 3+ BLE edema, PMI non-displaced Pulmonary: CTA bilaterally, no wheezes, rales or rhonchi, equal chest expansion, unlabored breathing Abdomen: soft, non-tender, BS noted, no guarding, non distended. No organomegaly, no pulsatile masses, Skin: warm and dry, no visible lesions. Feels warm, clammy, no rashes, no lesions, no erythema MSK: mild erythema in the groin and medial thigh area which looks significantly better than yesterday, no joint swelling noted, gait not assessed while in bed. Non tender calf or clubbing, 2+ pedal edema Neuro: A&O, moves all extremities, no focal deficits, sensation intact Psych: Appropriate mood and behavior, normal speech. - Patient Status Disposition: Transfer SNF Condition: Good Overall status at discharge: patient is progressing back to baseline - Discharge Instructions Follow Up With: Pro Glover MD [Primary Care Provider] - Additional Instructions: - Please follow-up with cardiology for of the stent placement owing to three- vessel disease. - Please follow-up with the Coumadin clinic as before. -Please follow up with PCP as an outpatient. -Please return to the ER immediately if having chest pain, shortness of breath, palpitation, numbness or tingling in extremities. - Diet and Activity Activity: resume usual activities as tolerated Diet: low fat, low cholesterol <Yuli Banegas M - Last Filed: 03/02/19 16:45> Date of Encounter: 03/02/19 - Discharge Diagnosis (1) Paroxysmal atrial fibrillation Status: Chronic (2) CAD (coronary artery disease) Status: Chronic Qualifiers: Coronary Disease-Associated Artery/Lesion type: [place] artery [place] vs. transplanted heart: [place] heart Associated angina: without angina Qualified Code(s): I25.10 - Atherosclerotic heart disease of [place] coronary artery without angina pectoris (3) Aortic stenosis Status: Chronic Qualifiers: Cardiac valve disease etiology: etiology unspecified Qualified Code(s): I35.0 - Nonrheumatic aortic (valve) stenosis (4) Hypertension Status: Chronic Qualifiers: Hypertension type: essential hypertension Qualified Code(s): I10 - Essential (primary) hypertension (5) Status post cardiac catheterization Status: Acute (6) Pseudoaneurysm of right femoral artery Status: Acute (7) CHF (congestive heart failure) Status: Chronic Qualifiers: Heart failure type: diastolic Heart failure chronicity: chronic Qualified Code(s): I50.32 - Chronic diastolic (congestive) heart failure Hospital course: Ms. Greene is a 78 year old female - Time Spent with Patient Total time spent providing and/or coordinating discharge services: Time spent: Greater than 30 minutes Date of admission: 03/02/19 13:16 Primary care physician: Pro Glover MD Consults: 02/26/19 15:31 Consult to Vascular Surgery [CONS] Stat Consulting Provider: Vascular Surgery [place] Reason for Consult: pseudoaneurysm Call Completed: Yes 02/28/19 16:33 Consult to Physical Therapy [CONS] Routine Comment: Evaluate, develop and implement POC Reason for Consult: Left ef pain Does patient have active BEDREST order?: No Is patient medically & hemodynamically stable?: Yes 02/28/19 16:34 Consult to Occupational Therapy [CONS] Routine Comment: Evaluate, develop and implement POC Reason for Consult: left leg pain Does patient have active BEDREST order?: No Is patient medically & hemodynamically stable?: Yes 03/01/19 17:42 Consult to Associate Artistic Director [CONS] Routine Reason for SW Consult: Discharge planning - SNF. - Constitutional Vitals: Temp Pulse Resp BP Pulse Ox 99.2 F 87 16 109/56 73 03/02/19 16:10 03/02/19 16:10 03/02/19 16:10 03/02/19 16:10 03/02/19 16:10 - Attending Attestation Patient was seen and examined. I agree with the discharge document as written by the resident physician. Patient admitted with right groin pseudoaneurysm s/p LHC the day prior. Seen by vascular and had thrombin injected. Cleared by vascular for discharge. GEN: NAD CVS: RRR. S1, S2, No m/r/g RESP: CTAB ABD: Soft, NT, ND, +BS EXT: No edema. 2+ DP. groin ecchymoses noted on the right sided extending into the right lower extremity. Also noted on lower abdomen. NEURO: Nonfocal
--- NOTE | 2019-03-02 15:20 | Physician Discharge Referral ---
ExtendedCare Referral Info Transfer To: SNF - Diagnosis (1) Pseudoaneurysm of right femoral artery Priority: Primary Status: Acute (2) Paroxysmal atrial fibrillation Priority: Secondary Status: Chronic (3) CAD (coronary artery disease) Priority: Secondary Status: Chronic (4) Aortic stenosis Priority: Secondary Status: Chronic (5) Hypertension Priority: Secondary Status: Chronic (6) Status post cardiac catheterization Priority: Secondary Status: Acute (7) CHF (congestive heart failure) Priority: Secondary Status: Chronic - Transfer Medications Home Medications: Aspirin Enteric Coated [Aspirin EC] 81 mg PO HS 10/01/16 [History] Potassium Chloride [K-Tab ER] 20 meq PO DAILY 10/01/16 [History] carBAMazepine [Tegretol] 200 mg PO DAILY 10/01/16 [History] Citalopram Hydrobromide [Celexa] 40 mg PO DAILY 12/10/16 [History] Oxycodone HCl/Acetaminophen [Percocet 5-325 mg Tablet] 1 tab PO QID PRN 08/30/18 [History] Baclofen [Lioresal] 10 mg PO HS PRN 10/07/18 [History] Ergocalciferol (VITAMIN D2) [Vitamin D2] 50,000 unit PO TH 10/07/18 [History] Loratadine [Allergy Relief] 10 mg PO DAILY 10/07/18 [History] Albuterol Sulfate [Ventolin Hfa] 2 puff IH Q4H PRN 11/08/18 [History] Atorvastatin Calcium [Lipitor] 20 mg PO HS 11/08/18 [History] Ferrous Sulfate 325 mg PO BID 11/08/18 [History] Gabapentin [Neurontin] 300 mg PO BID 11/08/18 [History] Omeprazole [PriLOSEC] 20 mg PO BID #60 capsule. 11/08/18 [Rx] Sucralfate [Carafate] 1 gm PO TIDAC 11/08/18 [History] dilTIAZem HCl [Diltiazem 24Hr ER] 120 mg PO DAILY 11/08/18 [History] Furosemide [Lasix] 20 mg PO BID #60 tablet 11/22/18 [Rx] Warfarin [Coumadin] 5 mg PO MOTUTHFRSA 02/25/19 [History] Ascorbic Acid [C-500] 500 mg PO BID 02/26/19 [History] Warfarin [Coumadin] 7.5 mg PO SUWE 02/26/19 [History] Allergies/Adverse Reactions: Allergy/AdvReac Type Severity Reaction Status Date / Time hydrocodone [From Vicodin] Allergy Itching Verified 11/08/18 09:14 apixaban [From Eliquis] AdvReac See Verified 02/25/19 07:38 Comments azithromycin AdvReac Diarrhea Verified 11/08/18 09:14 codeine AdvReac CHEST Verified 11/08/18 09:14 TIGHTNESS dabigatran etexilate AdvReac See Verified 02/25/19 07:38 [From Pradaxa] Comments - Respiratory Orders None Smoking Cessation: Smoking cessation has been advised. For more information, call the [place] Tobacco Quit Line at 2-643-IZSBNOW. - Advance Directives Code Status: Full Code - Rehabiliation Orders Rehab Potential: Good Rehab Orders: Evaluation for Physical Therapy, Evaluation for Occupational Therapy - Diet Orders Cardiac CERTIFICATION: I certify that the transfer of the above named patient to an Extended Care Facility is necessary for the continuing treatment of the diagnosis listed. The above information is true and accurate reflection of patient's current condition. Confidential - Redisclosure prohibited without a patient's written consent.
[2019-03-02 19:39] VITALS: BP 96/63
== END 2019-03-02 21:21 | DRG 300 ==
LOC: 2NENU 12:57 → EMEROOARM 12:57 → SUATTDRO 17:34 → 2NENU 18:19
PROVIDERS: ADMIT Internal Medicine; ATTEND Internal Medicine